=== PATIENT | female | born 1985 | race Caucasian/White ===

== ENCOUNTER 2017-05-18 13:20 | Emergency (ER) | payer OTHER ==
[2017-05-18] MEDS ORDERED: SODIUM CHLORIDE 0.9% 1,000 ML IV ONE ×3 (13:32→16:46)
[2017-05-18 13:57] LABS: BASOPHILS # (AUTO) 0.1 10^3/uL (0.0-0.1); BASOPHILS % (AUTO) 0.4 %; EOSINOPHILS % (AUTO) 0.2 %; HCT - HEMATOCRIT 41.6 % (37.0-47.0); HGB - HEMOGLOBIN 14.3 g/dL (12.0-16.0); LYMPHOCYTES # (AUTO) 2.3 10^3/uL (1.5-3.5); LYMPHOCYTES % (AUTO) 20.2 %; MEAN CORPUSCULAR HEMOGLOBIN 30.7 pg (27.0-31.0); MEAN CORPUSCULAR HGB CONC 34.4 g/dL (32.0-36.0); MEAN CORPUSCULAR VOLUME 89.3 fL (81.0-99.0); MEAN PLATELET VOLUME 9.6 fL (7.9-10.8); MONOCYTES # (AUTO) 0.7 10^3/uL (0.0-1.0); MONOCYTES % (AUTO) 6.4 %; NEUTROPHILS # (AUTO) 8.2 10^3/uL (1.5-6.6); NEUTROPHILS % (AUTO) 72.8 %; RED BLOOD COUNT 4.66 10^6/uL (4.20-5.40); RED CELL DISTRIBUTION WIDTH 12.3 % (12.0-15.0); UNCORRECTED WHITE BLOOD COUNT 11.3 x10^3/uL; WHITE BLOOD COUNT 11.3 x10^3/uL (4.8-10.8)
--- NOTE | 2017-05-18 14:10 | ED Physician Documentation ---
PD HPI NVD - Stated complaint Stated Complaint: ELEV BLOOD PRESSURE,RAPID HR - Chief complaint Chief Complaint: Abd Pain - History obtained from History obtained from: Patient - History of Present Illness Timing - onset: Today Timing - duration: Hours Timing - details: Gradual onset, Still present Associated symptoms: Other (blood in the stool) Contributing factors: Other (ate red peppers and dried tomatoes last night.) Similar symptoms before: No diagnosis Recently seen: Not recently seen - Additonal information Additional information: 31-year-old female is shy and avoids medical confrontation has had diarrhea for the past year several times per day with loose stool today she noted blood in the stool and she felt a bit lightheaded and dizzy. She has come to the emergency department with a rapid heart rate. She reports that she has not had blood in her stool before and that she does wonder if the red pepper and tried to make her sheet last night might be responsible for this. She noticed that she usually has a rapid heart rate. Review of Systems Constitutional: reports: Fatigue. denies: Fever, Chills Eyes: denies: Decreased vision Ears: denies: Ear pain Nose: denies: Congestion Throat: denies: Sore throat Cardiac: reports: Palpitations. denies: Chest pain / pressure Respiratory: denies: Dyspnea, Cough GI: reports: Abdominal Pain, Diarrhea. denies: Nausea, Vomiting : denies: Dysuria, Frequency Skin: denies: Rash, Lesions Musculoskeletal: denies: Neck pain, Back pain Neurologic: denies: Generalized weakness, Focal weakness, Numbness PD PAST MEDICAL HISTORY - Present Medications Home Medications: Ambulatory Orders Medication Instructions Recorded Confirmed Fluticasone [Flonase] 1 spray INH DAILY 05/18/17 05/18/17 - Allergies Allergies/Adverse Reactions: Allergies Allergy/AdvReac Type Severity Reaction Status Date / Time No Known Drug Allergies Allergy Verified 05/18/17 13:29 PD ED PE NORMAL - Vitals Vital signs reviewed: Yes (Tachycardic and hypertensive) - General General: Alert and oriented X 3, Well developed/nourished, Other (The patient is nervous appearing.) - HEENT HEENT: Atraumatic, PERRL, EOMI - Neck Neck: Supple, no meningeal sign - Cardiac Cardiac: No murmur, Other (Tachycardia to 150) - Respiratory Respiratory: No respiratory distress, Clear bilaterally - Abdomen Abdomen: Soft, Non tender - Back Back: No CVA TTP, No spinal TTP - Derm Derm: Normal color, Warm and dry, No rash - Extremities Extremities: No deformity, No edema - Neuro Neuro: Alert and oriented X 3, cut off operator scorer 2-12 intact, No motor deficit, No sensory deficit, Normal speech - Psych Psych: Normal mood, Normal affect Results - Vitals Vitals: Vital Signs - 24 hr 05/18/17 05/18/17 05/18/17 13:25 14:46 15:30 Temperature 37.3 C Heart Rate 157 H 130 H 113 H Respiratory 14 12 18 Rate Blood Pressure 180/103 H 158/108 H 171/94 H O2 Saturation 100 100 100 05/18/17 05/18/17 16:15 17:15 Temperature Heart Rate 133 H 95 Respiratory 14 14 Rate Blood Pressure 156/107 H 155/106 H O2 Saturation 100 99 Oxygen O2 Source Room air - EKG (time done) 1403 Rate: Rate (enter#) (128) Rhythm: Sinus tachycardia, LAE Ischemia: Non specific changes Compare to prior EKG: Old EKG unavailable Computer interpretation: Agree with computer - Labs Labs: Laboratory Tests 05/18/17 05/18/17 05/18/17 13:45 13:45 13:45 WBC 11.3 H RBC 4.66 Hgb 14.3 Hct 41.6 MCV 89.3 MCH 30.7 MCHC 34.4 RDW 12.3 Plt Count 283 MPV 9.6 Neut # 8.2 H Lymph # 2.3 [place] # 0.7 Eos # 0.0 Baso # 0.1 Absolute Nucleated RBC 0.00 Nucleated RBCs 0.0 Sodium 136 Potassium 3.2 L Chloride 101 Carbon Dioxide 23 Anion Gap 12.0 BUN 13 Creatinine 0.8 Estimated GFR (MDRD) 84 L Glucose 129 H Calcium 9.9 Total Bilirubin 1.1 H AST 21 ALT 20 Alkaline Phosphatase 48 Troponin I Total Protein 8.9 H Albumin 5.4 Globulin 3.5 Albumin/Globulin Ratio 1.5 Lipase 28 Urine Color Urine Clarity Urine pH Ur Specific [place] Urine Protein Urine Glucose (UA) Urine Ketones Urine Occult Blood Urine Nitrite Urine Bilirubin Urine Urobilinogen Ur Leukocyte Esterase Urine RBC Urine WBC Ur Squamous Epith Cells Urine Bacteria Ur Microscopic Review Urine Culture Comments Urine HCG, Qual Blood Type O POSITIVE Antibody Screen NEGATIVE 05/18/17 05/18/1717 14:49 14:59 15:45 WBC RBC Hgb Hct MCV MCH MCHC RDW Plt Count MPV Neut # Lymph # [place] # Eos # Baso # Absolute Nucleated RBC Nucleated RBCs Sodium Potassium Chloride Carbon Dioxide Anion Gap BUN Creatinine Estimated GFR (MDRD) Glucose Calcium Total Bilirubin AST ALT Alkaline Phosphatase Troponin I < 0.04 Total Protein Albumin Globulin Albumin/Globulin Ratio Lipase Urine Color YELLOW LT. YELLOW Urine Clarity HAZY CLEAR Urine pH 6.0 6.0 Ur Specific [place] 1.020 <=1.005 Urine Protein 30 H NEGATIVE Urine Glucose (UA) NEGATIVE NEGATIVE Urine Ketones 15 H NEGATIVE Urine Occult Blood SMALL H TRACE-INTA Urine Nitrite NEGATIVE NEGATIVE Urine Bilirubin NEGATIVE NEGATIVE Urine Urobilinogen 0.2 (NORMAL) 0.2 (NORMAL) Ur Leukocyte Esterase NEGATIVE NEGATIVE Urine RBC 6-10 H 0-5 Urine WBC >25 H 0-3 Ur Squamous Epith Cells MANY Squamous H RARE Squamous Urine Bacteria Few Rare Ur Microscopic Review INDICATED Cancelled Urine Culture Comments NOT INDICATED Cancelled Urine HCG, Qual NEGATIVE Blood Type Antibody Screen Procedures - IVC sono (time) 1400 Bedside IVC sono: IVC measures (cm) (0.66), IVC collapsed c insp (cm) (complete) , Profound dehydration 1730 Bedside IVC sono: IVC measures (cm) (1.46), IVC collapsed c insp (cm) (complete) , Dehydration (mild) PD MEDICAL DECISION MAKING - ED course Complexity details: considered differential, d/w patient ED course: 31-year-old female with a year-long history of diarrhea has developed what she felt was blood in her diarrhea this morning and on arrival to the emergency department she was found to be profoundly dehydrated. She is administered saline 2 L with marked improvement in her heart rate and return of her inferior vena cava from 0.66 to 1.46. She has not had diarrhea here in the ED and she has not had pain. She is nervous and she relates she is always nervous and has redness to her chest and face and heart racing with encounters. Her heart rate on arrival was 160 and after fluid administration is has come to under 100 but when anyone walks into the room the heart rate increase 20 points. I suspect her diarrhea is related to inflammatory bowel disease and I have encouraged her to seek follow up with a gas appliance installer for diagnosis and treatment. I have encouraged her to hydrate and to return to the ED for pain or bleeding. Her initial urine specimen had >25wbc/hpf but was a contaminated specimen and a second specimen was clear. She was administered Rocephin after the initial results. Departure - Departure Disposition: 01 Home, Self Care Clinical Impression: Dehydration, Anxiety Diarrhea Qualifiers: Diarrhea type: unspecified type Qualified Code(s): R19.7 - Diarrhea, unspecified Condition: Stable Instructions: ED Stress React, ED Dehydration, ED Diet Vomiting Diarrhea Follow-Up: Reyna Vasquez PA [Provider Admit Priv/Credential] - Comments: Follow up with a gas appliance installer for diagnosis and treatment.
[2017-05-18 14:12] LABS: ALBUMIN/GLOBULIN RATIO 1.5 (1.0-2.2); BILIRUBIN,TOTAL 1.1 mg/dL (0.2-1.0); CALCIUM 9.9 mg/dL (8.5-10.3); CREATININE 0.8 mg/dL (0.4-1.0); POTASSIUM 3.2 mmol/L (3.5-5.0); TOTAL PROTEIN 8.9 g/dL (6.7-8.2)
[2017-05-18 14:58] LABS: BILIRUBIN,URINE NEGATIVE (NEGATIVE)
[2017-05-18 14:59] LABS: UA w/ MICROSCOPIC CHARGE YES
[2017-05-18] MEDS ORDERED: POTASSIUM BICARB 25 MEQ TABLET PO STA (14:59)
[2017-05-18 15:04] LABS: HCG UR QUAL NEGATIVE
[2017-05-18 15:09] LABS: UR CULTURE IF IND NOT INDICATED; WBC,URINE >25 /HPF (0-5)
[2017-05-18] MEDS ORDERED: POTASSIUM BICARB 25 MEQ TABLET PO ONE (15:12)
[2017-05-18 16:07] LABS: BILIRUBIN,URINE NEGATIVE (NEGATIVE)
[2017-05-18] MEDS ORDERED: cefTRIAXone 1 GM in SODIUM CHLORIDE 0.9% MINIBAG 100 ML IV STA (16:20)
[2017-05-18] MEDS ORDERED: cefTRIAXone 1 GM VIAL ONE (16:45)
[2017-05-18 16:52] LABS: WBC,URINE 0-3 /HPF (0-5)
[2017-05-18 17:19] VITALS: BP 155/106
== END 2017-05-18 17:36 | disposition home or self-care (01) ==
LOC: ED 13:20
DX: E86.0 Dehydration (principal); F41.9 Anxiety disorder, unspecified; R19.7 Diarrhea, unspecified
CPT/HCPCS: 36415; 80053; 81001; 81025; 83690; 84484; 85025; 86850; 86900; 86901; 93005; 96361; 96365; 99284; A9270; 81003; 87086

== ENCOUNTER 2017-07-16 12:43 | Outpatient (CLI) | payer OTHER | END 2017-07-16 12:44 | disposition home or self-care (01) | LOC: DI 12:43 | PROVIDERS: ATTEND Registered Nurse | DX: R03.0 Elevated blood-pressure reading, without diagnosis of hypertension (principal) | CPT/HCPCS: 93306 ==

== ENCOUNTER 2020-11-11 14:25 | Outpatient (CLI) | payer BC ==
[2020-11-12 10:28] LABS: BILIRUBIN,URINE NEGATIVE (NEGATIVE); GLUCOSE, URINE (UA) NEGATIVE (NEGATIVE); KETONES,URINE (UA) NEGATIVE (NEGATIVE); LEUKOCYTE ESTERASE, URINE NEGATIVE (NEGATIVE); NITRITE,URINE NEGATIVE (NEGATIVE); OCCULT BLOOD,URINE NEGATIVE (NEGATIVE); PH,URINE 6.5 PH (5.0-7.5); PROTEIN,URINE NEGATIVE (NEGATIVE); UROBILINOGEN,URINE 0.2 (NORMAL) E.U./dL (NORMAL)
[2020-11-12 10:36] LABS: AMPHETAMINE SCREEN,URINE NEGATIVE (NEGATIVE); BENZODIAZEPINES SCREEN, URINE NEGATIVE (NEGATIVE); COCAINE SCREEN URINE NEGATIVE (NEGATIVE); METHADONE SCREEN, URINE NEGATIVE (NEGATIVE); METHAMPHETAMINES SCREEN, URINE NEGATIVE (NEGATIVE); MUDS CUTOFF CONCENTRATIONS CUTOFF CONC BELOW:; OPIATE SCREEN, URINE NEGATIVE (NEGATIVE); OXYCODONE SCREEN, URINE NEGATIVE (NEGATIVE); PROPOXYPHENE SCREEN, URINE NEGATIVE (NEGATIVE); TRICYCLIC ANTIDEPRESSANT,URINE NEGATIVE (NEGATIVE)
[2020-11-12 10:53] LABS: BACTERIA,URINE None Seen /HPF (None Seen); CLARITY,URINE CLEAR (CLEAR); RBC,URINE None Seen /HPF (0-5); SQUAMOUS EPITHELIAL CELL,UR FEW Squamous (<= Few)
== END 2020-11-11 23:59 | disposition home or self-care (01) ==
LOC: MERGE 14:25 → LAB.R 14:25
PROVIDERS: ATTEND Obstetrics & Gynecology
DX: Z34.90 Encounter for supervision of normal pregnancy, unspecified, unspecified trimester (principal)
CPT/HCPCS: 80306; 81001; 87086

== ENCOUNTER 2020-11-23 09:37 | Outpatient (CLI) | payer BC ==
--- NOTE | 2020-11-23 10:35 | Ultrasound Report ---
PROCEDURE: OB First Trimester w/TV INDICATIONS: SUPERVISION OF NORMAL OUTSIDE/PRIOR DATING DATA: Last menstrual period (LMP): 09/25/2020 LMP-based estimated date of delivery (PATRICE): 07/02/2021. First dating scan (date and location): 11/23/2020. Estimated date of delivery (PATRICE) from first dating scan: 07/14/2021. TECHNIQUE: Real-time scanning was performed of the fetus and maternal pelvic organs, with image documentation. Endovaginal scanning was also performed to better visualize the fetus and maternal ovaries. COMPARISON: None FINDINGS: Embryo: There is an intrauterine gestational sac seen, with a pole present, which measures 0.8 cm, which corresponds to an estimated gestational age of 6 weeks 5 days. cardiac activity is s een, with a measured heart rate of 137 bpm. No significant perigestational/subchorionic hemorrhage can be seen. Measurement variability in dating: +/- 4 weeks by LMP, +/- 7 days by mean sac diameter (use before 6 weeks gestation if crown-rump length not able to be measured), +/- 5 days by crown-rump length (6-12 weeks gestation). Maternal organs: Ovaries are within normal limits, with a left ovarian corpus luteum seen.. Limited images through the kidneys demonstrate no hydronephrosis. IMPRESSION: Single live intrauterine . There is a greater than one week discrepancy between the estimated gestational age based upon the giv en date of last menstrual period and the dating from the study. Please correlate with precise clinica l data. Close clinical follow-up with serial beta hCG measurements are recommended, as clinically appropriate . Reviewed by: Alex Del Angel MD on 11/23/2020 9:34 AM [facility] Approved by: Alex Del Angel MD on 11/23/2020 9:34 AM [facility] Station ID: [id number]
== END 2020-11-23 09:38 | disposition home or self-care (01) ==
LOC: DI 09:37
PROVIDERS: ATTEND Obstetrics & Gynecology
DX: O34.81 Maternal care for other abnormalities of pelvic organs, first trimester (principal); N83.12 Corpus luteum cyst of left ovary; Z3A.01 Less than 8 weeks gestation of pregnancy

== ENCOUNTER 2020-12-02 10:13 | Outpatient (CLI) | payer BC ==
[2020-12-02 11:00] LABS: BASOPHILS # (AUTO) 0.1 10^3/uL (0.0-0.1); BASOPHILS % (AUTO) 0.5 %; EOSINOPHILS # (AUTO) 0.4 10^3/uL (0.0-0.7); EOSINOPHILS % (AUTO) 3.6 %; HGB - HEMOGLOBIN 12.5 g/dL (12.0-16.0); LYMPHOCYTES # (AUTO) 2.5 10^3/uL (1.5-3.5); LYMPHOCYTES % (AUTO) 22.6 %; MEAN CORPUSCULAR HEMOGLOBIN 30.9 pg (27.0-31.0); MEAN CORPUSCULAR HGB CONC 34.2 g/dL (32.0-36.0); MEAN CORPUSCULAR VOLUME 90.3 fL (81.0-99.0); MEAN PLATELET VOLUME 11.6 fL (7.9-10.8); MONOCYTES # (AUTO) 0.7 10^3/uL (0.0-1.0); MONOCYTES % (AUTO) 6.6 %; NEUTROPHILS # (AUTO) 7.4 10^3/uL (1.5-6.6); NEUTROPHILS % (AUTO) 66.3 %; PLT - PLATELET COUNT 281 10^3/uL (130-450); RED BLOOD COUNT 4.04 10^6/uL (4.20-5.40); RED CELL DISTRIBUTION WIDTH 12.8 % (12.0-15.0); WHITE BLOOD COUNT 11.2 x10^3/uL (4.8-10.8)
[2020-12-02 11:14] LABS: ALBUMIN 4.2 g/dL (3.2-5.5); ALBUMIN/GLOBULIN RATIO 1.6 (1.0-2.2); BILIRUBIN,TOTAL 0.5 mg/dL (0.2-1.0); CALCIUM 9.3 mg/dL (8.5-10.3); CREATININE 0.5 mg/dL (0.4-1.0); TOTAL PROTEIN 6.9 g/dL (6.7-8.2)
[2020-12-02 13:26] LABS: HEMOGLOBIN A1c% 4.9 % (4.27-6.07)
[2020-12-03 12:38] LABS: HEPATITIS B SURFACE ANTIGEN NON-REACTIVE (NON-REACTIVE)
[2020-12-03 12:40] LABS: HEPATITIS C ANTIBODY NON-REACTIVE (NON-REACTIVE)
[2020-12-03 14:57] LABS: HIV AG/AB 4TH GEN NON-REACTIVE (NON-REACTIVE)
== END 2020-12-02 10:14 | disposition home or self-care (01) ==
LOC: LAB 10:13
PROVIDERS: ATTEND Obstetrics & Gynecology
DX: O16.9 Unspecified maternal hypertension, unspecified trimester (principal); Z36.89 Encounter for other specified antenatal screening; Z83.3 Family history of diabetes mellitus
CPT/HCPCS: 80053; 81220; 81243; 81329; 81599; 82306; 83036; 85025; 86592; 86762; 86787; 86803; 86850; 86900; 86901; 87340; 87389

== ENCOUNTER 2020-12-17 07:00 | Outpatient (CLI) | payer BC ==
[2020-12-17 17:01] LABS: CREATININE 24 HOUR,URINE 1011 mg/24h (600-1800); CREATININE,URINE 32.6 mg/dL; TOTAL VOLUME 24HRS,URINE 3100 mL
[2020-12-17 17:07] LABS: TOTAL PROTEIN,URINE TIMED < 6 mg/dL
== END 2020-12-17 23:59 | disposition home or self-care (01) ==
LOC: LAB.R 07:00
PROVIDERS: ATTEND Obstetrics & Gynecology
DX: O16.9 Unspecified maternal hypertension, unspecified trimester (principal)
CPT/HCPCS: 82570; 84156

== ENCOUNTER 2021-01-30 15:21 | Outpatient (CLI) | payer BC | END 2021-01-30 15:22 | disposition home or self-care (01) | LOC: LAB 15:21 | PROVIDERS: ATTEND Obstetrics & Gynecology | DX: Z34.90 Encounter for supervision of normal pregnancy, unspecified, unspecified trimester (principal); Z83.3 Family history of diabetes mellitus | CPT/HCPCS: 36415; 82950 ==

== ENCOUNTER 2021-02-25 15:11 | Outpatient (CLI) | payer BC ==
--- NOTE | 2021-02-26 10:51 | Ultrasound Report ---
PROCEDURE: OB Detailed Eval INDICATIONS: SCREENING OUTSIDE/PRIOR DATING DATA: Last menstrual period (LMP): 09/25/2020. LMP-based estimated date of delivery (PATRICE): 07/02/2021. First dating scan (date and location): 11/23/2020. Estimated date of delivery (PATRICE) from first dating scan: 07/14/2021. TECHNIQUE: Real-time scanning was performed of the fetus, with image documentation and biometric measurements. Endovaginal scanning: Not needed COMPARISON: 11/23/2020 FINDINGS: General: A single living intrauterine gestation is present. Presentation: Variable at this time Placenta: Placental position is anterior, without previa. Amniotic fluid index: 13.5 cm, 42nd percentile for gestational age. heart rate: 149 beats per minute. Maternal cervical canal: 4.2 cm long; normal length is 2.5 cm or more. biometrics: Biparietal diameter: 4.8 cm, 20 weeks 3 days Head circumference: 18.0 cm, 20 weeks 3 days Abdominal circumference: 14.7 cm, 20 weeks 0 days Femur length: 3.2 cm, 20 weeks 1 day Estimated gestational age from initial scan: 20 weeks 1 day. Composite gestational age from present scan: 20 weeks 1 day Estimated weight and percentile: 332 g, 42nd percentile Measurement variability in biometric dating: +/- 10 days from 12-20 weeks gestation, +/- 2 weeks from 20-30 weeks gestation, +/- 3 weeks at 30 weeks gestation or later. Anatomic survey: Neuro: Ventricles are normal at less than 10 mm. Cisterna magna is normal at 3-11 mm. Cerebellum i s normal in size and morphology. Nuchal skin fold: Normal at less than 6 mm between 14 and 20 weeks gestational age. Face: Nose and lips, facial profile are normal. Spine: No evidence for spina bifida. Heart: 4-chambered heart is present, with normal ventricular outflow tracts. Diaphragm: Diaphragm is intact. Stomach: Left-sided stomach is present. Kidneys: No hydronephrosis. Normal is less than 5 mm in 2nd trimester, less than 7 mm in 3rd trimester. Cord: 3 vessel cord has orthotopic insertion. Bladder: Normal in size. Extremities: All 4 extremities are visualized. IMPRESSION: Normal survey of anatomy, appropriate interval growth. presentation is variable at this t nikolas. Normal amniotic fluid volume with anterior placenta. Reviewed by: Keenan Partida MD on 02/26/2021 10:50 AM PDT Approved by: Keenan Partida MD on 02/26/2021 10:50 AM PDT Station ID: [id number]
== END 2021-02-25 15:12 | disposition home or self-care (01) ==
LOC: DI 15:11
PROVIDERS: ATTEND Obstetrics & Gynecology
DX: Z36.89 Encounter for other specified antenatal screening (principal)

== ENCOUNTER 2021-04-22 16:07 | Outpatient (CLI) | payer BC ==
[2021-04-22 17:22] LABS: HCT - HEMATOCRIT 32.5 % (37.0-47.0); HGB - HEMOGLOBIN 11.1 g/dL (12.0-16.0); MEAN CORPUSCULAR HEMOGLOBIN 31.4 pg (27.0-31.0); MEAN CORPUSCULAR HGB CONC 34.2 g/dL (32.0-36.0); MEAN CORPUSCULAR VOLUME 91.8 fL (81.0-99.0); MEAN PLATELET VOLUME 11.5 fL (7.9-10.8); RED BLOOD COUNT 3.54 10^6/uL (4.20-5.40); RED CELL DISTRIBUTION WIDTH 12.5 % (12.0-15.0); WHITE BLOOD COUNT 15.8 x10^3/uL (4.8-10.8)
== END 2021-04-22 16:08 | disposition home or self-care (01) ==
LOC: LAB 16:07
PROVIDERS: ATTEND Obstetrics & Gynecology
DX: O99.280 Endocrine, nutritional and metabolic diseases complicating pregnancy, unspecified trimester (principal); E55.9 Vitamin D deficiency, unspecified
CPT/HCPCS: 36415; 82306; 82950; 85027

== ENCOUNTER 2021-04-29 08:47 | Outpatient (CLI) | payer BC ==
[2021-04-29 09:15] LABS: GTT GLUCOSE,FASTING 93 mg/dL (70-100)
== END 2021-04-29 08:48 | disposition home or self-care (01) ==
LOC: LAB 08:47
PROVIDERS: ATTEND Obstetrics & Gynecology
DX: O99.810 Abnormal glucose complicating pregnancy (principal)
CPT/HCPCS: 36415; 82951; 82952

== ENCOUNTER 2021-05-19 14:00 | Outpatient (CLI) | payer BC | END 2021-05-19 14:01 | disposition home or self-care (01) | LOC: NS 14:00 | PROVIDERS: ATTEND Obstetrics & Gynecology | DX: Z71.3 Dietary counseling and surveillance (principal); O24.419 Gestational diabetes mellitus in pregnancy, unspecified control | CPT/HCPCS: 97802 ==

== ENCOUNTER 2021-05-28 15:56 | Outpatient (CLI) | payer BC ==
[2021-05-28 16:15] VITALS: BP 117/71
--- NOTE | 2021-05-28 19:58 | PROCEDURE REPORT ---
- HPI Diagnosis/Indication for NST: Pre- Hypertension Current EDU 07/14/21 Gestation 33 Weeks and 2 Days 1 Para 0 Vital Signs Temperature 98.1 F 05/28/21 16:14 Heart Rate 94 05/28/21 16:14 Respiratory Rate 16 05/28/21 16:14 Blood Pressure 117/71 05/28/21 16:14 O2 Saturation 98 05/28/21 16:14 Temperature 98.1 F 05/28/21 16:14 Heart Rate 94 05/28/21 16:14 Respiratory Rate 16 05/28/21 16:14 Blood Pressure 117/71 05/28/21 16:14 O2 Saturation 98 05/28/21 16:14 - NST Procedure NST Procedure Start Date 05/28/21 Start Time 16:13 Stop Time 16:45 Vibroacoustic Stimulation Used No Patient States Movement Yes NST Baseline 140 with moderate variability. Patient had two 15X15 accelerations, no decelerations. Category I monitor strip. Reactive NST. - Results and Plan Findings/Impression: IUP 33 2/7 with CHTN, Reactive NST. Plan: Continue twice weekly NSTs and continue medications. Keep all appointments. Call for any problems or concerns.
== END 2021-05-28 17:00 | disposition home or self-care (01) ==
LOC: WFO 15:56 → FBP 15:59 → WFO 17:00
PROVIDERS: ATTEND Obstetrics & Gynecology
DX: O10.913 Unspecified pre-existing hypertension complicating pregnancy, third trimester (principal); Z3A.33 33 weeks gestation of pregnancy
CPT/HCPCS: 59025

== ENCOUNTER 2021-05-30 15:52 | Outpatient (CLI) | payer BC ==
--- NOTE | 2021-05-31 07:24 | Ultrasound Report ---
PROCEDURE: OB F/U or Repeat INDICATIONS: GESTATIONAL DIABETES OUTSIDE/PRIOR DATING DATA: Last menstrual period (LMP): 09/25/2020. LMP-based estimated date of delivery (PATRICE): 07/02/2021 First dating scan (date and location): 11/23/2020. Estimated date of delivery (PATRICE) from first dating scan: 07/14/2021. The below data below was generated using the above PATRICE of 07/14/2021 TECHNIQUE: Real-time scanning was performed of the fetus, with image documentation and biometric measurements. Endovaginal scanning: Not needed COMPARISON: Prior OB ultrasound studies for this . FINDINGS: General: A single living intrauterine gestation is present. Presentation: Vertex Placenta: Placental position is anterior, without previa. Amniotic fluid index: 15.3 cm, normal for gestational age. heart rate: 150 beats per minute. Maternal cervical canal: 3.6 cm long; normal length is 2.5 cm or more. biometrics: Biparietal diameter: 8.8 cm, 35 weeks 3 days Head circumference: 32.5 cm, 36 weeks 5 days Abdominal circumference: 28.6 cm, 32 weeks 4 days Femur length: 6.2 cm, 32 weeks 1 day Estimated gestational age from initial scan: 33 weeks 4 days. Composite gestational age from present scan: 34 weeks 2 days Estimated weight and percentile: 2124 g, 29th percentile. Measurement variability in biometric dating: +/- 10 days from 12-20 weeks gestation, +/- 2 weeks from 20-30 weeks gestation, +/- 3 weeks at 30 weeks gestation or more. Other: Not applicable. IMPRESSION: Appropriate interval growth, current estimated weight is at the 29th percentile fo r current gestational age. Amniotic fluid volume is normal. The delivery date is projected to be cent ered on 07/14/2021. Reviewed by: Keenan Partida MD on 05/31/2021 7:23 AM PDT Approved by: Keenan Partida MD on 05/31/2021 7:23 AM PDT Station ID: [id number]
== END 2021-05-30 15:53 | disposition home or self-care (01) ==
LOC: DI 15:52
PROVIDERS: ATTEND Obstetrics & Gynecology
DX: O09.93 Supervision of high risk pregnancy, unspecified, third trimester (principal); O24.419 Gestational diabetes mellitus in pregnancy, unspecified control; O16.3 Unspecified maternal hypertension, third trimester; Z3A.33 33 weeks gestation of pregnancy

== ENCOUNTER 2021-05-30 17:16 | Outpatient (CLI) | payer BC ==
[2021-05-30 17:32] VITALS: BP 124/80
--- NOTE | 2021-05-31 09:43 | PROCEDURE REPORT ---
- HPI Current EDU 07/14/21 Gestation 33 Weeks and 4 Days 1 Para 0 Vital Signs Temperature 98.1 F 05/30/21 17:29 Heart Rate 93 05/30/21 17:29 Respiratory Rate 16 05/30/21 17:29 Blood Pressure 124/80 05/30/21 17:29 O2 Saturation 98 05/30/21 17:29 Temperature 98.1 F 05/30/21 17:29 Heart Rate 93 05/30/21 17:29 Respiratory Rate 16 05/30/21 17:29 Blood Pressure 124/80 05/30/21 17:29 O2 Saturation 98 05/30/21 17:29 Patient presented for NST due to her GHTN and GDM. Patient is 35yo at 33 4/7 weeks and is without complaints. NST: Baseline 140's with Moderate Variability. Accelerations 15X15 present. No decelerations. No Contractions. Reactive NST and Category I strip. A/P- IUP 33 4/7 with GDM and GHTN. Continue current plan and follow-up. Call for any problems. - NST Procedure NST Procedure Start Date 05/30/21 Start Time 17:30 Stop Time 18:00 Vibroacoustic Stimulation Used No Patient States Movement Yes
== END 2021-05-30 18:15 | disposition home or self-care (01) ==
LOC: WFO 17:16 → FBP 17:18 → WFO 18:15
PROVIDERS: ATTEND Obstetrics & Gynecology
DX: O24.419 Gestational diabetes mellitus in pregnancy, unspecified control (principal); O13.3 Gestational [pregnancy-induced] hypertension without significant proteinuria, third trimester; Z3A.33 33 weeks gestation of pregnancy; O09.93 Supervision of high risk pregnancy, unspecified, third trimester
CPT/HCPCS: 59025

== ENCOUNTER 2021-06-03 16:10 | Outpatient (CLI) | payer BC ==
[2021-06-03 17:12] VITALS: BP 119/70
--- NOTE | 2021-06-03 17:25 | PROCEDURE REPORT ---
- HPI Diagnosis/Indication for NST: Pre- Hypertension (Patient has CHTN and GDM) Current EDU 07/14/21 Gestation 34 Weeks and 1 Days 1 Para 0 Vital Signs Temperature 97.9 F 06/03/21 16:15 Heart Rate 73 06/03/21 16:15 Respiratory Rate 16 06/03/21 16:15 Blood Pressure 133/73 H 06/03/21 16:15 O2 Saturation 99 06/03/21 16:15 Temperature 97.9 F 06/03/21 16:15 Heart Rate 70 06/03/21 17:02 Respiratory Rate 16 06/03/21 17:02 Blood Pressure 119/70 06/03/21 17:02 O2 Saturation 99 06/03/21 16:15 - NST Procedure NST Procedure Start Date 06/03/21 Start Time 16:13 Stop Time 17:03 Vibroacoustic Stimulation Used Yes Patient States Movement Yes 35yo at 38 weeks presents for NST due to CHTN and GDM. Patient reports good movement. Patient is on Labetalol 100mg BID. Patient states her glucose level always stays within the range it is supposed to be in. NST: Baseline 130 with moderate variability. Patient required Acoustic stimulation and ice water to obtain 15X15 accelerations. No decelerations. Reactive NST and Category I monitor strip. P-Keep all appointments for clinic and monitoring. Call for any problems.
== END 2021-06-03 17:05 | disposition home or self-care (01) ==
LOC: WFO 16:10 → FBP 16:10 → WFO 17:05
PROVIDERS: ATTEND Obstetrics & Gynecology
DX: O10.913 Unspecified pre-existing hypertension complicating pregnancy, third trimester (principal); O24.419 Gestational diabetes mellitus in pregnancy, unspecified control; Z3A.34 34 weeks gestation of pregnancy; Z79.899 Other long term (current) drug therapy
CPT/HCPCS: 59025

== ENCOUNTER 2021-06-06 16:53 | Outpatient (CLI) | payer BC ==
[2021-06-06 17:14] VITALS: BP 124/75
--- NOTE | 2021-06-07 13:02 | PROCEDURE REPORT ---
- HPI Diagnosis/Indication for NST: Gestational Diabetes Current EDU 07/14/21 Gestation 34 Weeks and 4 Days 1 Para 0 Vital Signs Temperature 97.7 F 06/06/21 17:12 Heart Rate 88 06/06/21 17:12 Respiratory Rate 16 06/06/21 17:12 Blood Pressure 124/75 06/06/21 17:12 O2 Saturation 99 06/06/21 17:12 Temperature 97.7 F 06/06/21 17:12 Heart Rate 88 06/06/21 17:12 Respiratory Rate 16 06/06/21 17:12 Blood Pressure 124/75 06/06/21 17:12 O2 Saturation 99 06/06/21 17:12 35yo at 34 4/7 weeks here for NST due to GDM NST: Baseline heart tones 135 with moderate variability. Accelerations of 15X15 are present. No decelerations. Reactive NST and Category I monitor strip. - NST Procedure NST Procedure Start Date 06/06/21 Start Time 17:03 Stop Time 17:29 Vibroacoustic Stimulation Used No Patient States Movement Yes - Results and Plan Plan: A-IUP 34 4/7 with GDM P- Continue with all monitoring and clinic appointments.
--- NOTE | 2021-06-10 16:31 | Ultrasound Report ---
PROCEDURE: OB Limited INDICATIONS: SUPERVISION OF HIGH RISK OUTSIDE/PRIOR DATING DATA: Last menstrual period (LMP): 09/25/2020. LMP-based estimated date of delivery (PATRICE): 07/02/2021. First dating scan (date and location): 11/23/2020. Estimated date of delivery (PATRICE) from first dating scan: 07/14/2021. TECHNIQUE: Real-time scanning was performed of the fetus, with image documentation. Endovaginal scanning: No COMPARISON: Prior OB ultrasound dated 05/30/2021 FINDINGS: A single living intrauterine gestation is present. Presentation: Vertex Placenta: Placental position is anterior, without previa. Amniotic fluid index: 14.5 cm, normal for gestational age. heart rate: 141 beats per minutes. Maternal cervical canal: 4.0 cm long; normal length is 2.5 cm or more. Estimated gestational age from initial scan: 34 weeks 4 days. IMPRESSION: Single living IUP redemonstrated and amniotic fluid index is within normal limits. Reviewed by: RANDAL Del Toro on 06/10/2021 4:30 PM PDT Approved by: Keenan Partida MD on 06/10/2021 4:30 PM PDT Station ID: [id number]
== END 2021-06-06 17:30 | disposition home or self-care (01) ==
LOC: DI 16:53 → FBP 16:58 → WFO 17:30
PROVIDERS: ATTEND Obstetrics & Gynecology
DX: O24.419 Gestational diabetes mellitus in pregnancy, unspecified control (principal); O09.93 Supervision of high risk pregnancy, unspecified, third trimester; O16.3 Unspecified maternal hypertension, third trimester; Z3A.34 34 weeks gestation of pregnancy
CPT/HCPCS: 59025

== ENCOUNTER 2021-06-10 15:56 | Outpatient (CLI) | payer BC ==
[2021-06-10 16:16] VITALS: BP 126/71
--- NOTE | 2021-06-13 10:40 | PROCEDURE REPORT ---
- HPI Diagnosis/Indication for NST: Pre- Hypertension Current EDU 07/14/21 Gestation 35 Weeks and 1 Days 1 Para 0 Vital Signs Temperature 98.2 F 06/10/21 16:10 Heart Rate 80 06/10/21 16:10 Respiratory Rate 14 06/10/21 16:10 Blood Pressure 126/71 06/10/21 16:10 O2 Saturation 98 06/10/21 16:10 Temperature 98.2 F 06/10/21 16:10 Heart Rate 80 06/10/21 16:10 Respiratory Rate 14 06/10/21 16:10 Blood Pressure 126/71 06/10/21 16:10 O2 Saturation 98 06/10/21 16:10 - NST Procedure NST Procedure Start Date 06/10/21 Start Time 16:03 Stop Time 17:01 Vibroacoustic Stimulation Used No Patient States Movement Yes EFM 140 mod jose luis 15x15 accels no decels TOCO: quiet - Results and Plan Findings/Impression: 35 yo at 35+1 wga with affected by GDM and CHTN here for NST Cat I tracing Cont with twice weekly NSt and weekly JOANNE DOS: 06/10/21 NST read 06/10/21 DX: IUP at 35+1 GDM CHTN
== END 2021-06-10 17:03 | disposition home or self-care (01) ==
LOC: WFO 15:56 → FBP 15:59 → WFO 17:03
PROVIDERS: ATTEND Obstetrics & Gynecology
DX: O24.419 Gestational diabetes mellitus in pregnancy, unspecified control (principal); O10.913 Unspecified pre-existing hypertension complicating pregnancy, third trimester; Z3A.35 35 weeks gestation of pregnancy
CPT/HCPCS: 59025

== ENCOUNTER 2021-06-13 15:57 | Outpatient (CLI) | payer BC ==
--- NOTE | 2021-06-14 09:10 | Ultrasound Report ---
PROCEDURE: OB Limited INDICATIONS: SUPERVISION HIGH RISK OUTSIDE/PRIOR DATING DATA: Last menstrual period (LMP): 09/25/2020. LMP-based estimated date of delivery (PATRICE): 07/02/2021. First dating scan (date and location): 11/23/2020. Estimated date of delivery (PATRICE) from first dating scan: 07/14/2021. The below data below was generated using the ultrasound PATRICE of 07/14/2021 TECHNIQUE: Real-time scanning was performed of the fetus, with image documentation. COMPARISON: 06/06/2021, 05/30/2021, 02/25/2021, 11/23/2020 FINDINGS: A single live intrauterine gestation is present. Presentation: Cephalic Placenta: Placental position is anterior, without previa. Amniotic fluid index: 21.8 cm, above the 95th percentile for gestational age. heart rate: 133 beats per minutes. Maternal cervical canal: 3.5 cm long; normal length is 2.5 cm or more. Estimated gestational age from initial scan: 35 weeks 4 days. IMPRESSION: Live intrauterine . Mild polyhydramnios, with the JOANNE measuring 21.8. Reviewed by: Alex Del Angel MD on 06/14/2021 8:09 AM [facility] Approved by: Alex Del Angel MD on 06/14/2021 8:09 AM [facility] Station ID: [id number]
== END 2021-06-13 15:58 | disposition home or self-care (01) ==
LOC: DI 15:57
PROVIDERS: ATTEND Obstetrics & Gynecology
DX: O09.93 Supervision of high risk pregnancy, unspecified, third trimester (principal); O40.3XX0 Polyhydramnios, third trimester, not applicable or unspecified; Z3A.35 35 weeks gestation of pregnancy

== ENCOUNTER 2021-06-13 17:24 | Outpatient (CLI) | payer BC ==
[2021-06-13 17:36] VITALS: BP 127/69
--- NOTE | 2021-06-13 18:50 | PROCEDURE REPORT ---
- HPI Diagnosis/Indication for NST: Pre- Hypertension Current EDU 07/14/21 Gestation 35 Weeks and 4 Days 1 Para 0 Vital Signs Temperature 97.9 F 06/13/21 17:32 Heart Rate 81 06/13/21 17:32 Respiratory Rate 16 06/13/21 17:32 Blood Pressure 127/69 06/13/21 17:32 O2 Saturation 99 06/13/21 17:32 Temperature 97.9 F 06/13/21 17:32 Heart Rate 81 06/13/21 17:32 Respiratory Rate 16 06/13/21 17:32 Blood Pressure 127/69 06/13/21 17:32 O2 Saturation 99 06/13/21 17:32 - NST Procedure NST Procedure Start Date 06/13/21 Start Time 17:30 Stop Time 18:00 Vibroacoustic Stimulation Used No Patient States Movement Yes EFM 135 mod jose luis 15x15 accels no decels TOCO: 1 on 20 min - Results and Plan Findings/Impression: 35 yo at 35+4 wga with affected by GDM and CHTN here for NST Cat I tracing Cont with twice weekly NST and weekly JOANNE DOS: 06/13/21 NST read 06/13/21 DX: IUP at 35+4 GDM CHTN
== END 2021-06-13 18:00 | disposition home or self-care (01) ==
LOC: WFO 17:24 → FBP 17:25 → WFO 18:00
PROVIDERS: ATTEND Obstetrics & Gynecology
DX: O09.93 Supervision of high risk pregnancy, unspecified, third trimester (principal); O10.913 Unspecified pre-existing hypertension complicating pregnancy, third trimester; Z3A.35 35 weeks gestation of pregnancy
CPT/HCPCS: 59025

== ENCOUNTER 2021-06-17 15:53 | Outpatient (CLI) | payer BC ==
[2021-06-17 16:06] VITALS: BP 136/86
--- NOTE | 2021-06-19 11:03 | PROCEDURE REPORT ---
- HPI Diagnosis/Indication for NST: Other (GDM and HTN) Current EDU 07/16/21 Gestation 35 Weeks and 6 Days 1 Para 0 Vital Signs Temperature 98.2 F 06/17/21 16:05 Heart Rate 100 06/17/21 16:05 Respiratory Rate 20 06/17/21 16:05 Blood Pressure 136/86 H 06/17/21 16:05 O2 Saturation 97 06/17/21 16:05 Temperature 98.2 F 06/17/21 16:05 Heart Rate 100 06/17/21 16:05 Respiratory Rate 20 06/17/21 16:05 Blood Pressure 136/86 H 06/17/21 16:05 O2 Saturation 97 06/17/21 16:05 - NST Procedure NST Procedure Start Date 06/17/21 Start Time 16:00 Stop Time 16:25 Vibroacoustic Stimulation Used No Patient States Movement Yes EFM 140 mod jose luis 15x15 accels no decels TOCO: 2 contractions in 20 minutes - Results and Plan Findings/Impression: 35 yo at 35+6 wga with affected by GDM and CHTN here for NST Cat I tracing Cont with twice weekly NST and weekly JOANNE DOS: 06/17/21 NST read 06/17/21 DX: IUP at 35+6 GDM CHTN
== END 2021-06-17 16:28 | disposition home or self-care (01) ==
LOC: WFO 15:53 → FBP 15:54 → WFO 16:28
PROVIDERS: ATTEND Obstetrics & Gynecology
DX: O24.419 Gestational diabetes mellitus in pregnancy, unspecified control (principal); O10.913 Unspecified pre-existing hypertension complicating pregnancy, third trimester; Z3A.35 35 weeks gestation of pregnancy
CPT/HCPCS: 59025

== ENCOUNTER 2021-06-18 07:00 | Outpatient (CLI) | payer BC | END 2021-06-18 23:59 | disposition home or self-care (01) | LOC: LAB.R 07:00 | PROVIDERS: ATTEND Obstetrics & Gynecology | DX: O09.90 Supervision of high risk pregnancy, unspecified, unspecified trimester (principal) | CPT/HCPCS: 87797 ==

== ENCOUNTER 2021-06-20 15:56 | Outpatient (CLI) | payer BC ==
--- NOTE | 2021-06-20 18:37 | Ultrasound Report ---
PROCEDURE: OB Limited INDICATIONS: SUPERVISION HIGH RISK OUTSIDE/PRIOR DATING DATA: Last menstrual period (LMP): 09/25/2020. LMP-based estimated date of delivery (PATRICE): 07/02/2021. First dating scan (date and location): 11/23/2020. Estimated date of delivery (PATRICE) from first dating scan: 07/14/2021. TECHNIQUE: Real-time scanning was performed of the fetus, with image documentation. Endovaginal scanning: None COMPARISON: 06/13/2021 FINDINGS: A single living intrauterine gestation is present. Presentation: Cephalic Placenta: Placental position is anterior, without previa. Amniotic fluid index: 22.9 cm heart rate: 143 beats per minutes. Maternal cervical canal: 4.1 cm long; normal length is 2.5 cm or more. Estimated gestational age from initial scan: 36 week 4 day. IMPRESSION: Single live intrauterine consistent with 36 week 4 day gestation JOANNE 22.9 cm, mild polyhydramnios Reviewed by: Ralph Wylie MD on 06/20/2021 5:35 PM [facility] Approved by: Ralph Wylei MD on 06/20/2021 5:35 PM [facility] Station ID: [id number]
== END 2021-06-20 15:57 | disposition home or self-care (01) ==
LOC: DI 15:56
PROVIDERS: ATTEND Obstetrics & Gynecology
DX: O09.93 Supervision of high risk pregnancy, unspecified, third trimester (principal); Z3A.36 36 weeks gestation of pregnancy

== ENCOUNTER 2021-06-20 16:50 | Outpatient (CLI) | payer BC ==
[2021-06-20 17:05] VITALS: BP 128/77
--- NOTE | 2021-06-21 11:11 | PROCEDURE REPORT ---
- HPI Diagnosis/Indication for NST: Gestational Diabetes Current EDU 07/14/21 Gestation 36 Weeks and 4 Days 1 Para 0 Vital Signs Temperature 36.8 C 06/20/21 17:03 Heart Rate 82 06/20/21 17:03 Respiratory Rate 16 06/20/21 17:03 Blood Pressure 128/77 06/20/21 17:03 O2 Saturation 100 06/20/21 17:03 Temperature 36.8 C 06/20/21 17:03 Heart Rate 82 06/20/21 17:03 Respiratory Rate 16 06/20/21 17:03 Blood Pressure 128/77 06/20/21 17:03 O2 Saturation 100 06/20/21 17:03 - NST Procedure NST Procedure Start Date 06/20/21 Start Time 16:55 Stop Time 17:23 Vibroacoustic Stimulation Used No Patient States Movement Yes - Results and Plan Findings/Impression: Nonstress test performed Baseline 135 qualifying accelerations of 15 x 15 were noted no decelerations were noted. No contractions visualized. Reactive NST Date of service 06/20/2021 Plan: Twice weekly NSTs. Date of service 06/20/2021
== END 2021-06-20 17:30 | disposition home or self-care (01) ==
LOC: WFO 16:50 → FBP 16:51 → WFO 17:30
PROVIDERS: ATTEND Obstetrics & Gynecology
DX: O09.93 Supervision of high risk pregnancy, unspecified, third trimester (principal); O24.419 Gestational diabetes mellitus in pregnancy, unspecified control; Z3A.36 36 weeks gestation of pregnancy
CPT/HCPCS: 59025

== ENCOUNTER 2021-06-24 15:54 | Outpatient (CLI) | payer BC ==
[2021-06-24 16:54] VITALS: BP 137/77
--- NOTE | 2021-06-28 04:32 | PROCEDURE REPORT ---
- HPI Diagnosis/Indication for NST: Gestational Diabetes Current EDU 07/14/21 Gestation 37 Weeks and 1 Days 1 Para 0 Vital Signs Temperature 98.2 F 06/24/21 16:00 Heart Rate 72 06/24/21 16:00 Respiratory Rate 18 06/24/21 16:00 Blood Pressure 138/84 H 06/24/21 16:00 O2 Saturation 99 06/24/21 16:00 Temperature 98.2 F 06/24/21 16:27 Heart Rate 79 06/24/21 16:27 Respiratory Rate 18 06/24/21 16:27 Blood Pressure 137/77 H 06/24/21 16:27 O2 Saturation 99 06/24/21 16:27 - NST Procedure NST Procedure Start Date 06/24/21 Start Time 16:00 Stop Time 16:30 Vibroacoustic Stimulation Used No Patient States Movement Yes EFM: 135 mod jose luis 15x15 accels no decels TOCO: mild Q 2-3 min - Results and Plan Findings/Impression: 35 yo at 37+1 wga with affected by GDM and CHTN here for NST Cat I tracing Cont with twice weekly NST and weekly JOANNE Not feeling CTX. Warning signs reviewed Borderline DOS: 06/24/21 NST read 06/24/21 DX: IUP at 37+1 GDM CHTN
== END 2021-06-24 16:45 | disposition home or self-care (01) ==
LOC: WFO 15:54 → FBP 15:54 → WFO 16:45
PROVIDERS: ATTEND Obstetrics & Gynecology
DX: O24.419 Gestational diabetes mellitus in pregnancy, unspecified control (principal); Z3A.37 37 weeks gestation of pregnancy; O10.913 Unspecified pre-existing hypertension complicating pregnancy, third trimester
CPT/HCPCS: 59025; 99212

== ENCOUNTER 2021-06-27 16:02 | Outpatient (CLI) | payer BC ==
--- NOTE | 2021-06-27 17:14 | Ultrasound Report ---
PROCEDURE: OB Limited INDICATIONS: SUPERVISION HIGH RISK OUTSIDE/PRIOR DATING DATA: Last menstrual period (LMP): 09/25/2020. LMP-based estimated date of delivery (PATRICE): 07/02/2021. First dating scan (date and location): 11/23/2020. Estimated date of delivery (PATRICE) from first dating scan: 07/14/2021. TECHNIQUE: Real-time scanning was performed of the fetus, with image documentation. Endovaginal scanning: No COMPARISON: Prior OB ultrasound dated 06/20/2021 FINDINGS: A single living intrauterine gestation is present. Presentation: Vertex Placenta: Placental position is anterior, without previa. Amniotic fluid index: 17.9 cm, within normal limits for gestational age. heart rate: 143 beats per minutes. Maternal cervical canal: Not well seen. Estimated gestational age from initial scan: 37 weeks 4 days. IMPRESSION: Single living IUP redemonstrated and amniotic fluid index is within normal limits. Reviewed by: RANDAL Del Toro on 06/27/2021 5:13 PM PDT Approved by: Keenan Partida MD on 06/27/2021 5:13 PM PDT Station ID: [id number]
== END 2021-06-27 16:03 | disposition home or self-care (01) ==
LOC: DI 16:02
PROVIDERS: ATTEND Obstetrics & Gynecology
DX: O09.93 Supervision of high risk pregnancy, unspecified, third trimester (principal); Z3A.37 37 weeks gestation of pregnancy

== ENCOUNTER 2021-06-27 16:32 | Outpatient (CLI) | payer BC ==
--- NOTE | 2021-06-28 05:06 | PROCEDURE REPORT ---
- NST Procedure NST Procedure Start Time 16:00 Stop Time 16:30 EFM: 135 mod jose luis 15x15 accels no decels TOCO: irritable - Results and Plan Findings/Impression: 35 yo at 37+4 wga with affected by GDM and CHTN here for NST Cat I tracing Cont with twice weekly NST and weekly JOANNE Borderline JOANNE DOS: 06/27/21 NST read 06/27/21 DX: IUP at 37+4 GDM CHTN
== END 2021-06-27 16:33 | disposition home or self-care (01) ==
LOC: WFO 16:32
PROVIDERS: ATTEND Obstetrics & Gynecology
DX: Z53.9 Procedure and treatment not carried out, unspecified reason (principal)

== ENCOUNTER 2021-06-27 16:37 | Outpatient (CLI) | payer BC ==
[2021-06-27 16:51] VITALS: BP 126/83
--- NOTE | 2021-07-02 18:05 | PROCEDURE REPORT ---
- HPI Diagnosis/Indication for NST: Other (CHTN) Current EDU 07/14/21 Gestation 37 Weeks and 4 Days 1 Para 0 Vital Signs Temperature 97.5 F L 06/27/21 16:50 Heart Rate 96 06/27/21 16:50 Respiratory Rate 16 06/27/21 16:50 Blood Pressure 126/83 H 06/27/21 16:50 O2 Saturation 100 06/27/21 16:50 Temperature 97.5 F L 06/27/21 16:50 Heart Rate 96 06/27/21 16:50 Respiratory Rate 16 06/27/21 16:50 Blood Pressure 126/83 H 06/27/21 16:50 O2 Saturation 100 06/27/21 16:50 - NST Procedure NST Procedure Start Date 06/27/21 Start Time 16:50 Stop Time 17:16 Vibroacoustic Stimulation Used No Patient States Movement Yes EFM 140 mod jose luis 15x15 accels no decels TOCO: irreg, Q4-5, mild - Results and Plan Findings/Impression: 35 yo at 37+4 wga with affected by CHTN and GDM here for NST Cat I tracing DOS: 06/27/21 NST read: 06/27/21 DX: GDM CHTN IUP at 37+4 wga
== END 2021-06-27 17:20 | disposition home or self-care (01) ==
LOC: WFO 16:37 → FBP 16:40 → WFO 17:20
PROVIDERS: ATTEND Obstetrics & Gynecology
DX: O10.913 Unspecified pre-existing hypertension complicating pregnancy, third trimester (principal); O24.419 Gestational diabetes mellitus in pregnancy, unspecified control; O09.93 Supervision of high risk pregnancy, unspecified, third trimester; Z3A.37 37 weeks gestation of pregnancy
CPT/HCPCS: 59025

== ENCOUNTER 2021-07-01 15:53 | Outpatient (CLI) | payer BC ==
[2021-07-01 16:03] VITALS: BP 130/77
--- NOTE | 2021-07-01 20:05 | PROCEDURE REPORT ---
- HPI Diagnosis/Indication for NST: Other (CHTN AND GDM) Current EDU 07/14/21 Gestation 38 Weeks and 1 Days 1 Para 0 Vital Signs Temperature 97.7 F 07/01/21 16:02 Heart Rate 70 07/01/21 16:02 Respiratory Rate 16 07/01/21 16:02 Blood Pressure 130/77 07/01/21 16:02 O2 Saturation 100 07/01/21 16:02 Temperature 97.7 F 07/01/21 16:02 Heart Rate 70 07/01/21 16:02 Respiratory Rate 16 07/01/21 16:02 Blood Pressure 130/77 07/01/21 16:02 O2 Saturation 100 07/01/21 16:02 - NST Procedure NST Procedure Start Date 07/01/21 Start Time 16:00 Stop Time 16:23 Vibroacoustic Stimulation Used No Patient States Movement Yes EFM: 140 mod jose luis 15x15 accels no decels TOCO: irritable - Results and Plan Findings/Impression: 35 yo at 38+1 wga with affected by GDM and CHTN here for NST Cat I tracing Cont with twice weekly NST and weekly JOANNE Borderline JOANNE DOS: 07/01/21 NST read 07/01/21 DX: IUP at 38+1 GDM CHTN
== END 2021-07-01 16:30 | disposition home or self-care (01) ==
LOC: WFO 15:53 → FBP 15:56 → WFO 16:30
PROVIDERS: ATTEND Obstetrics & Gynecology
DX: O24.419 Gestational diabetes mellitus in pregnancy, unspecified control (principal); O10.913 Unspecified pre-existing hypertension complicating pregnancy, third trimester; Z3A.38 38 weeks gestation of pregnancy
CPT/HCPCS: 59025

== ENCOUNTER 2021-07-04 15:56 | Outpatient (CLI) | payer BC ==
[2021-07-04 17:01] VITALS: BP 138/81
--- NOTE | 2021-07-04 20:10 | PROCEDURE REPORT ---
- HPI Diagnosis/Indication for NST: Other (Chroinic Hypertension) Current EDU 07/14/21 Gestation 38 Weeks and 4 Days 1 Para 0 Vital Signs Temperature 98.2 F 07/04/21 17:00 Heart Rate 84 07/04/21 17:00 Respiratory Rate 16 07/04/21 17:00 Blood Pressure 138/81 H 07/04/21 17:00 O2 Saturation 99 07/04/21 17:00 Temperature 98.2 F 07/04/21 17:00 Heart Rate 84 07/04/21 17:00 Respiratory Rate 16 07/04/21 17:00 Blood Pressure 138/81 H 07/04/21 17:00 O2 Saturation 99 07/04/21 17:00 - NST Procedure NST Procedure Start Date 07/04/21 Start Time 16:48 Stop Time 17:16 Vibroacoustic Stimulation Used No Patient States Movement Yes 35 yo at 38 4/7 with Chronic Hypertension and Gestational Diabetes is here for NST. Patient reports good movement. Patient denies contractions, SROM or vaginal bleeding. Patient is without complaints. NST: heart rate baseline is 135 with moderate variability. Accelerations are present, 15X15 bpm. No decelrations. Reactive NST and Category I monitor strip. A-IUP 38 4/7 with Chronic Hypertension and GDM. Keep all appointments for monitoring and for clinic. Labor precautions.
== END 2021-07-04 17:20 | disposition home or self-care (01) ==
LOC: WFO 15:56 → FBP 16:42 → WFO 17:20
PROVIDERS: ATTEND Obstetrics & Gynecology
DX: O24.419 Gestational diabetes mellitus in pregnancy, unspecified control (principal); Z3A.38 38 weeks gestation of pregnancy; O10.913 Unspecified pre-existing hypertension complicating pregnancy, third trimester; O09.93 Supervision of high risk pregnancy, unspecified, third trimester
CPT/HCPCS: 59025

== ENCOUNTER 2021-07-04 15:58 | Outpatient (CLI) | payer BC ==
--- NOTE | 2021-07-04 17:17 | Ultrasound Report ---
PROCEDURE: OB F/U or Repeat INDICATIONS: GESTATIONAL DIABETES, SUPER HIGH RISK OUTSIDE/PRIOR DATING DATA: Last menstrual period (LMP): 09/25/2020. LMP-based estimated date of delivery (PATRICE): 07/02/2021. First dating scan (date and location): 11/23/2020. Estimated date of delivery (PATRICE) from first dating scan: 07/14/2021. TECHNIQUE: Real-time scanning was performed of the fetus, with image documentation and biometric measurements. Endovaginal scanning: No COMPARISON: Prior OB ultrasound dated 06/27/2021 FINDINGS: General: A single living intrauterine gestation is present. Presentation: Vertex Placenta: Placental position is anterior, without previa. Amniotic fluid index: 23 cm, upper limits of normal for gestational age. heart rate: 133 beats per minute. Maternal cervical canal: Not well seen. biometrics: Biparietal diameter: 39 weeks 5 days Head circumference: 38 weeks 4 days Abdominal circumference: 37 weeks 1 day Femur length: 36 weeks Estimated gestational age from initial scan: 38 weeks 4 days Composite gestational age from present scan: 37 weeks 6 days Estimated weight and percentile: 318 4 g; 35th percentile Measurement variability in biometric dating: +/- 10 days from 12-20 weeks gestation, +/- 2 weeks from 20-30 weeks gestation, +/- 3 weeks at 30 weeks gestation or more. Other: S/D ratios within normal limits ranging between 2.5 and 2.7 IMPRESSION: Single living IUP redemonstrated and interval growth is within normal limits. Reviewed by: RANDAL Del Toro on 07/04/2021 5:16 PM PDT Approved by: Cristhian Macdonald MD on 07/04/2021 5:16 PM PDT Station ID: [id number]
== END 2021-07-04 15:59 | disposition home or self-care (01) ==
LOC: DI 15:58
PROVIDERS: ATTEND Obstetrics & Gynecology
DX: O09.93 Supervision of high risk pregnancy, unspecified, third trimester (principal); Z3A.38 38 weeks gestation of pregnancy

== ENCOUNTER 2021-07-07 16:49 | Outpatient (CLI) | payer BC ==
--- NOTE | 2021-07-07 18:04 | PROCEDURE REPORT ---
- HPI Diagnosis/Indication for NST: Gestational Diabetes (Patient has GDM A2 on Metformin and Chroinic Hypertension.) - NST Procedure NST Procedure Start Time 16:48 Stop Time 16:23 35 yo at 39 0/7 with Chronic Hypertension and GDM A2 presented for NST. Patient reports good movement. Patient denies contractions, SROM or vaginal bleeding. NST: 130 with moderate variability and Accelerations. 15X15 Accelerations. No decelerations. A-IUP 39 0/7 with Chronic Hypertension and GDM-A2 P- Patient to be called in for induction as soon as staffing allows or tomorrow morning. Labor Precautions.
[2021-07-07 18:15] VITALS: BP 133/81
== END 2021-07-07 17:55 | disposition home or self-care (01) ==
LOC: WFO 16:49 → FBP 16:53 → WFO 17:55
PROVIDERS: ATTEND Obstetrics & Gynecology
DX: O24.415 Gestational diabetes mellitus in pregnancy, controlled by oral hypoglycemic drugs (principal); Z3A.39 39 weeks gestation of pregnancy; O10.913 Unspecified pre-existing hypertension complicating pregnancy, third trimester
CPT/HCPCS: 59025

== ENCOUNTER 2021-07-08 07:43 | Inpatient (IN) | payer BC ==
[2021-07-08] MEDS ORDERED: METOCLOPRAMIDE 10 MG TABLET PO PRN (08:48)
[2021-07-08] MEDS ORDERED: TRANEXAMIC ACID IN NACL 1,000 MG/100 ML BAG IV PRN (08:48)
[2021-07-08] MEDS ORDERED: LIDOCAINE-MPF 1% 30 ML VIAL ID PRN (08:48)
[2021-07-08] MEDS ORDERED: SODIUM CHLORIDE FLUSH 0.9% 10 ML SYRINGE IVP PRN (08:48)
[2021-07-08] MEDS ORDERED: ONDANSETRON ODT 4 MG TABLET TL PRN (08:48)
[2021-07-08] MEDS ORDERED: fentaNYL 100 MCG/2 ML VIAL IVP PRN (08:48)
[2021-07-08] MEDS ORDERED: ACETAMINOPHEN 325 MG TABLET PO PRN (08:48)
[2021-07-08] MEDS ORDERED: OXYTOCIN/SODIUM CHLORIDE 500 ML IV PRN (08:48)
[2021-07-08] MEDS ORDERED: ONDANSETRON 4 MG/2 ML VIAL IVP PRN (08:48)
[2021-07-08] MEDS ORDERED: OXYTOCIN 10 UNIT/ML VIAL IM PRN (08:48)
[2021-07-08] MEDS ORDERED: METHYLERGONOVINE 0.2 MG/ML VIAL IM PRN (08:48)
[2021-07-08] MEDS ORDERED: METOCLOPRAMIDE 10 MG/2 ML VIAL IVP PRN (08:48)
[2021-07-08] MEDS ORDERED: PROMETHAZINE 25 MG TABLET PO PRN (08:48)
[2021-07-08] MEDS ORDERED: CARBOPROST TROMETHAMINE 250 MCG/ML AMP IM PRN (08:48)
[2021-07-08] MEDS ORDERED: miSOPROStoL 200 MCG TABLET BC PRN (08:48)
[2021-07-08] MEDS ORDERED: SODIUM CHLORIDE FLUSH 0.9% 10 ML SYRINGE IVP SCH (09:00)
[2021-07-08] MEDS ORDERED: miSOPROStoL 100 MCG TABLET VG SCH (09:00)
[2021-07-08 09:02] LABS: BASOPHILS % (AUTO) 0.3 %; EOSINOPHILS # (AUTO) 0.2 10^3/uL (0.0-0.7); EOSINOPHILS % (AUTO) 1.3 %; HCT - HEMATOCRIT 34.8 % (37.0-47.0); HGB - HEMOGLOBIN 11.6 g/dL (12.0-16.0); MEAN CORPUSCULAR HEMOGLOBIN 30.9 pg (27.0-31.0); MEAN CORPUSCULAR HGB CONC 33.3 g/dL (32.0-36.0); MEAN CORPUSCULAR VOLUME 92.8 fL (81.0-99.0); MEAN PLATELET VOLUME 12.8 fL (7.9-10.8); MONOCYTES # (AUTO) 0.8 10^3/uL (0.0-1.0); MONOCYTES % (AUTO) 6.7 %; NEUTROPHILS # (AUTO) 8.7 10^3/uL (1.5-6.6); NEUTROPHILS % (AUTO) 73.7 %; PLT - PLATELET COUNT 197 10^3/uL (130-450); RED BLOOD COUNT 3.75 10^6/uL (4.20-5.40); WHITE BLOOD COUNT 11.8 x10^3/uL (4.8-10.8)
[2021-07-08] MEDS: miSOPROStoL 100 MCG TABLET BC SCH ×4 (09:15→21:07)
--- NOTE | 2021-07-08 12:11 | HISTORY & PHYSICAL EXAMINATION ---
Admit History - Visit Reason Visit Reason: Other (Patient presents for induction of labor due to Chronic Hypertension and GDM-A2.) - : 1 Parity: 0 Premature: 0 Ectopic: 0 : 0 Care: positive: Other ([facility]. Dr. Mckoy.), None Risk/History: positive: Other (Chronic Hypertension diagnosed in 2013.) Complications This : positive: Gestational diabetes (Gestational Diabetes A2 utilizing Metformin 100mg po q hs.), Other (Chronic Hypertension on Labetalol 100mg po BID.) Smoking Status: Never smoker - Mother's Labs Mother's Blood Type: positive: O Mother's RH: positive: Positive GBS: positive: Group B Step Negative Rubella Status: positive: Immune Meds/Allgy - Home Medications Home Medications: Ambulatory Orders Medication Instructions Recorded Confirmed Fluticasone [Flonase] 1 spray INH DAILY 05/18/17 05/18/17 Labetalol [Trandate] 100 mg PO BID 05/19/21 05/19/21 Pnv No.95/Ferrous Fum/Folic AC 1 each PO DAILY 05/19/21 05/19/21 [ Caplet] - Allergies Allergies/Adverse Reactions: Allergies Allergy/AdvReac Type Severity Reaction Status Date / Time No Known Drug Allergies Allergy Verified 12/16/20 15:47 Review of Systems - Constitutional Constitutional: denies: Fatigue, Weakness - Cardiovascular Cariovascular: denies: Irregular heart rate, Palpitations, Chest pain - Respiratory Respiratory: denies: Cough, Sputum production, Wheezing - Gastrointestinal Gastrointestinal: denies: Abdominal pain - Genitourinary Genitourinary: denies: Dysuria, Frequency - Musculoskeletal Musculoskeletal: denies: Muscle pain - Integumentary Integumentary: denies: Rash - Neurological Neurological: denies: General weakness, Focal weakness - Psychiatric Psychiatric: denies: Depression, Anxiety Physical - Abdominal Exam Vital Signs: Temp Pulse Resp BP Pulse Ox 97.9 F 122 H 18 121/76 07/08/21 08:55 07/08/21 08:55 07/08/21 08:55 07/08/21 08:55 Contraction Frequency (min/apart): None at present. Uterine Resting Tone: positive: Soft - Monitoring Heart Rate Baseline: 130's Strip Review: positive: Category I - Presentation Presentation: positive: Vertex - Vaginal Exam Membranes: positive: Membranes intact Dilation (in cm): Finger tip Effacement (%): 50 Station: positive: -3, Ballotable Cervical Position: positive: Midposition - Speculum Exam Speculum Exam Performed: positive: No - Other Notes Labor Progress Note/Additional Text: General: Patient is lying in bed and appears comfortable. Chest: Clear to auscultation. Good breath sounds in all hung. No wheezes or rhonchi. Heart: RRR without murmur or gallop. Abdomen: Soft, gravid, Non-tender RN Exam on admission: Cervix FT/50/-2, ballotable, mid-position. Extremities: No edema, no calf tenderness Neuro: DTR's +2/+4 Spoke to patient about Induction process. Discussed ultimate goal is healthy mom and healthy . Patient desires to labor without epidural and took on line Hypnosis classes to have tools to handle her pain. Discussed she needs to be monitored continuously and that our monitors are wireless and she can get in tub with them. Patient received the COVID Vaccine during , last dose when 28 weeks gestation. A-IUP 39 0/7 Induction of labor due to Chronic Hypertension and Gestational Diabetes A2. Will follow 2 hour post meal blood sugars and do a fasting in the morning, if she is still . Continue Labetalol BID. P- Admit. Begin with Cytotec cervical ripening. Continuous monitoring.
[2021-07-08] MEDS: LACTATED RINGERS 1,000 ML IV SCH (12:14)
--- NOTE | 2021-07-08 13:22 | PROVIDER PROGRESS NOTE ---
Labor Progress Note - Uterine Monitoring Contraction Frequency (min/apart): Very irregular, 3-7 Patient is not feeling mu ch. Contraction Intensity: positive: Mild - Monitoring Monitor Mode: positive: External ultrasound Heart Rate Baseline: 130 Heart Rate Variability: positive: Moderate (6-25 bmp) Accelerations: positive: Present, 15x15 Decelerations: positive: None Strip Review: positive: Category I - Vaginal Exam Dilation (in cm): 1.5 Effacement (%): 50 Station: -3 (Off to patient's left side and mid position. Soft.) - Labor Progress Note Labor Progress Note/Additional Text: Patient is not feeling too many contractions. Patient reports good movement. A-IUP 39 0/7 Induction due to Chronic Hypertension and GDM-A2 P- Give next Cytotec dose. Continuous monitoring.
[2021-07-08] MEDS ORDERED: ZOLPIDEM 5 MG TABLET PO PRN (21:00)
[2021-07-08] MEDS: LABETALOL 100 MG TABLET PO SCH (21:06)
[2021-07-09] MEDS: LACTATED RINGERS 1,000 ML IV SCH ×2 (02:10→05:34)
--- NOTE | 2021-07-09 02:24 | PROVIDER PROGRESS NOTE ---
Labor Progress Note - Uterine Monitoring Contraction Intensity: positive: Moderate, Moderate to strong - Monitoring Monitor Mode: positive: External ultrasound Heart Rate Baseline: 130 Heart Rate Variability: positive: Moderate (6-25 bmp) Accelerations: positive: Present, 15x15 Strip Review: positive: Category I (With pushing, patient is having variable decelrations.) - Vaginal Exam Dilation (in cm): Complete Effacement (%): 100 Station: 0 - Labor Progress Note Labor Progress Note/Additional Text: Patient was complete with bulging forebag. AROM performed with clear fluid. Patient immediately started pushing and had some decelerations with pushing. Side tilt and moving off of center when not pushing. Moderate variability is present. Head moved to 1+ station. A-IUP 39 1/7 with Chronic Hypertension and GDM A2 P- Expectant Management. Anticipate .
[2021-07-09] MEDS ORDERED: fentaNYL 100 MCG/2 ML VIAL ONE (03:03)
[2021-07-09] MEDS ORDERED: SODIUM CHLORIDE 0.9% 500 ML IV ONE ×2 (04:03→07:16)
[2021-07-09 04:04] LABS: BASOPHILS % (AUTO) 0.5 %; EOSINOPHILS % (AUTO) 0.2 %; HGB - HEMOGLOBIN 9.7 g/dL (12.0-16.0); LYMPHOCYTES % (AUTO) 5.6 %; MEAN CORPUSCULAR HEMOGLOBIN 31.3 pg (27.0-31.0); MEAN CORPUSCULAR HGB CONC 33.4 g/dL (32.0-36.0); MEAN CORPUSCULAR VOLUME 93.5 fL (81.0-99.0); MEAN PLATELET VOLUME 12.1 fL (7.9-10.8); MONOCYTES % (AUTO) 2.5 %; NEUTROPHILS % (AUTO) 87.1 %; PLT - PLATELET COUNT 196 10^3/uL (130-450); RED CELL DISTRIBUTION WIDTH 13.1 % (12.0-15.0)
[2021-07-09 04:07] LABS: ABNORMAL LYMPHS % (MANUAL) 0 %
[2021-07-09 04:34] LABS: INR 1.1 (0.8-1.2)
--- NOTE | 2021-07-09 05:00 | DELIVERY NOTE ---
Delivery Note - Labor Labor: positive: Other (Induced with Cytotec) - Delivery Method Delivery Method: positive: Spontaneous vaginal delivery - Cervical Ripening Method Cervical Ripening Method: positive: Misoprostil - Presentation Presentation: positive: Vertex, OA - occiput anterior - Nuchal Cord Nuchal Cord: positive: Present (Loose times one, delivered over head.) - Anesthetic Anesthetic Type: Anesthetic: positive: Lidocaine - 1% plain Volume: positive: Other (20 cc.) - Amniotic Fluid Description Amniotic Fluid Description: positive: Clear - Episiotomy Type Episiotomy Type: positive: None - Laceration Laceration: positive: 2nd degree, Perineal (There were vaginal lacerations bilaterally down both vaginal sulcus/sidewalls. There was a very deep, left periurethral that extended through and through the labial skin. There was a right periurethral and right vaginal sidewall laceration. There was a second degree perineal laceration stretched), Periurethral, Vaginal - Irvine Irvine: positive: Placed in direct skin contact with mother Irvine sex: positive: Male - Cord Cord: positive: 3 vessels - Placenta Placenta: positive: Intact, Spontaneous - Estimated Blood Loss Estimated Blood Loss (in cc): 2,920 - Post Delivery Events Post Delivery Events: positive: Other (Patient had significant blood loss coming from several vaginal lacerations. It was bleeding rapidly after delivery. Bleeding started prior to delivery of head. Vaginal sulcus lacerations were bilateral and deep. Left periurethral laceration was bleeding profusely.) - Delivery Comments (Free Text/Narrative) Delivery Comments (Free Text/Narrative): 35 yo at 39 1/7 started induction/cervical ripening on 07/08/21 for Chronic Hypertension and GDM-A2. Patient had 3 doses of cytotec. Patient got up to tub and within 30 minutes was feeling a lot of pressure. Patient was found to be complete. AROM performed and clear fluid present. Patient started pushing at 2:16 and had delivery at 2:52. Delivery: Patient pushed head to 3+ station. Significant blood flow started appearing 3-4 pushes before delivery of head. Controlled delivery of head in direct OA position occurred. There was a loose nuchal cord times one that was easily delivered over the infant head. The remainder of delivered spontaneously, anterior shoulder first, then controlled deilviery of body. was placed on mother's abdomen. Delayed cord clamping was performed. Living male with Apgars of 8/9. The placenta delivered spontaneously, intact, CHARITY. Cervix was inspected and found to be bruised, but intact. Significant blood flow was coming from the vagina. Pitocin was started in IV after 's cord clamped. Patient was placed in stirrups and bed broken down. 1%Lidocaine was injected into several lacerations. The Left Periurethral area had a very deep laceration that extended through and through the labial skin. 2-0 Vicryl was was utilized in a running fashion in the deep layer. 2-0 Vicryl in a running fashion was utilized to then sew the skin. 3-0 Vicryl was utilized on the under side of the labial skin, then on the outside of the labial skin. Attention was directed to right vaginal sulcus laceration that was bleeding. 2-0 Vicryl in a running fashion to place sutures for approximation to vaginal mucosa. The right labial skin was approximated with 2-0 Vicryl. Right periuurethral laceration repaired with 2-0 Vicryl The left vaginal sulcus/sidewall laceration was repaired with 2-0 vicryl. Several deep sutures were placed at the introitus to approximate the vaginal side wall to the vaginal mucosa in the midline. The right vaginal sidewall appear to be having active bleeding and a deep defect was palpated. 2-0 Vicryl in interrupted fashion times three was utilized to repair the defect. Hemostasis was obtained. The Left periurethral area appeared to be oozing and 3 interrupted sutures of 2-0 Vicryl were placed to obtain hemostasis. Attention was then directed at introitus. The hymen was from the vaginal mucosa. 2-0 Vicryl was utilized to approximate the hymen to the vaignal mucosa. Next, one deep figure of 8 of 0- Vicryl was placed in the levator ani to remove it from stretch. It was intact, but stretched. 2-0 Vicryl in in 2- layer, running fashion was utilized to repair the perineal laceration. Good hemostasis and approximation were obtained. During procedure, due to significant blood loss, TXA was giving, 2 units of PRBC's were ordered. Patient's blood pressure got low and fluid boluses were given. Patient's legs were elevated over her head. Second IV was placed. Several more sutures were placed at introitus to obtain hemostasis approximation. All areas of lacerations were re-inspected and found to be hemostatic. The fundus was checked and found to be below the umbilicus. EBL is 2920cc. First unit of PRBC's is hanging. Plan to give 2 units of PBC's and one unit of FFP due to significant. Hemostasis was obtained. Patient and infant are resting in stable condition.
[2021-07-09 05:03] LABS: BAND NEUTROPHILS % (MANUAL) 35 %; DIFFERENTIAL COMMENT MANUAL DIFFERENTIAL; LYMPHOCYTES # (MANUAL) 1.4 10^3/uL (1.5-3.5); LYMPHOCYTES % (MANUAL) 6 %; METAMYELOCYTES % (MANUAL) 2 %; MONOCYTES # (MANUAL) 0.2 10^3/uL (0.0-1.0); MYELOCYTES % (MANUAL) 2 %; NEUTROPHILS # (MANUAL) 21.4 10^3/uL (1.5-6.6); PLATELET ESTIMATE, MANUAL NORMAL (130-450,000) (NORMAL); RBC MORPHOLOGY (MULTIPLE) NORMAL APPEARANCE (NORMAL)
[2021-07-09] MEDS: ACETAMINOPHEN 500 MG TABLET PO PRN ×2 (05:16→14:27)
[2021-07-09] MEDS ORDERED: LACTATED RINGERS 1,000 ML IV SCH (06:00)
[2021-07-09 06:18] LABS: HCT - HEMATOCRIT 28.9 % (37.0-47.0); HGB - HEMOGLOBIN 9.7 g/dL (12.0-16.0)
[2021-07-09] MEDS: IBUPROFEN 600 MG TABLET PO SCH ×3 (09:06→20:43)
[2021-07-09] MEDS: LABETALOL 100 MG TABLET PO SCH (13:09)
[2021-07-09 13:30] LABS: BASOPHILS # (AUTO) 0.1 10^3/uL (0.0-0.1); BASOPHILS % (AUTO) 0.4 %; EOSINOPHILS % (AUTO) 0.2 %; HCT - HEMATOCRIT 25.8 % (37.0-47.0); HGB - HEMOGLOBIN 8.7 g/dL (12.0-16.0); LYMPHOCYTES # (AUTO) 1.3 10^3/uL (1.5-3.5); LYMPHOCYTES % (AUTO) 7.1 %; MEAN CORPUSCULAR HEMOGLOBIN 30.4 pg (27.0-31.0); MEAN CORPUSCULAR HGB CONC 33.7 g/dL (32.0-36.0); MEAN CORPUSCULAR VOLUME 90.2 fL (81.0-99.0); MEAN PLATELET VOLUME 12.2 fL (7.9-10.8); MONOCYTES # (AUTO) 0.7 10^3/uL (0.0-1.0); MONOCYTES % (AUTO) 3.7 %; NEUTROPHILS # (AUTO) 15.9 10^3/uL (1.5-6.6); NEUTROPHILS % (AUTO) 87.6 %; PLT - PLATELET COUNT 134 10^3/uL (130-450); RED BLOOD COUNT 2.86 10^6/uL (4.20-5.40); RED CELL DISTRIBUTION WIDTH 14.7 % (12.0-15.0); WHITE BLOOD COUNT 18.1 x10^3/uL (4.8-10.8)
[2021-07-09 18:06] LABS: BASOPHILS # (AUTO) 0.1 10^3/uL (0.0-0.1); BASOPHILS % (AUTO) 0.4 %; EOSINOPHILS # (AUTO) 0.2 10^3/uL (0.0-0.7); HCT - HEMATOCRIT 24.2 % (37.0-47.0); HGB - HEMOGLOBIN 8.4 g/dL (12.0-16.0); LYMPHOCYTES # (AUTO) 1.5 10^3/uL (1.5-3.5); LYMPHOCYTES % (AUTO) 9.8 %; MEAN CORPUSCULAR HEMOGLOBIN 31.3 pg (27.0-31.0); MEAN CORPUSCULAR HGB CONC 34.7 g/dL (32.0-36.0); MEAN CORPUSCULAR VOLUME 90.3 fL (81.0-99.0); MEAN PLATELET VOLUME 12.1 fL (7.9-10.8); MONOCYTES # (AUTO) 0.9 10^3/uL (0.0-1.0); MONOCYTES % (AUTO) 5.6 %; NEUTROPHILS # (AUTO) 12.5 10^3/uL (1.5-6.6); NEUTROPHILS % (AUTO) 81.8 %; PLT - PLATELET COUNT 128 10^3/uL (130-450); RED BLOOD COUNT 2.68 10^6/uL (4.20-5.40); RED CELL DISTRIBUTION WIDTH 15.3 % (12.0-15.0); WHITE BLOOD COUNT 15.3 x10^3/uL (4.8-10.8)
[2021-07-09] MEDS: DOCUSATE SODIUM 100 MG CAPSULE PO SCH (20:43)
[2021-07-10] MEDS: ACETAMINOPHEN 500 MG TABLET PO PRN ×3 (00:02→16:19)
[2021-07-10] MEDS: IBUPROFEN 600 MG TABLET PO SCH ×3 (06:23→18:51)
[2021-07-10 07:00] LABS: BASOPHILS # (AUTO) 0.1 10^3/uL (0.0-0.1); BASOPHILS % (AUTO) 0.5 %; EOSINOPHILS # (AUTO) 0.2 10^3/uL (0.0-0.7); EOSINOPHILS % (AUTO) 1.6 %; HCT - HEMATOCRIT 25.3 % (37.0-47.0); HGB - HEMOGLOBIN 8.5 g/dL (12.0-16.0); LYMPHOCYTES # (AUTO) 1.5 10^3/uL (1.5-3.5); LYMPHOCYTES % (AUTO) 10.8 %; MEAN CORPUSCULAR HEMOGLOBIN 30.5 pg (27.0-31.0); MEAN CORPUSCULAR HGB CONC 33.6 g/dL (32.0-36.0); MEAN CORPUSCULAR VOLUME 90.7 fL (81.0-99.0); MEAN PLATELET VOLUME 12.4 fL (7.9-10.8); MONOCYTES # (AUTO) 1.1 10^3/uL (0.0-1.0); MONOCYTES % (AUTO) 7.8 %; NEUTROPHILS # (AUTO) 10.9 10^3/uL (1.5-6.6); PLT - PLATELET COUNT 127 10^3/uL (130-450); RED BLOOD COUNT 2.79 10^6/uL (4.20-5.40); RED CELL DISTRIBUTION WIDTH 15.3 % (12.0-15.0)
[2021-07-10] MEDS: DOCUSATE SODIUM 100 MG CAPSULE PO SCH ×2 (08:59→20:43)
--- NOTE | 2021-07-10 11:14 | PROVIDER PROGRESS NOTE ---
Subjective - Prog Note Date Prog Note Date: 07/10/21 Prog Note Time: 11:15 - Subjective Pt reports feeling: Improved (Patient is reseting in bed, holding her sleeping infant. Patient is ambulating, urinating, and tolerating a regular diet. Patient states pain is well controlled. Patient is breast feeding.) Objective - Vital Signs/Intake & Output Reviewed Vital Signs: Yes Vital Signs: Vital Signs x48h Temp Pulse Resp BP Pulse Ox 07/10/21 08:00 98.1 F 100 14 118/62 100 Intake & Output: Intake & Output 07/07/21 07/08/21 07/09/21 07/10/21 23:59 23:59 23:59 23:59 Intake Total 1485 2668.333 Output Total 2455 1750 Balance 1485 213.333 -1750 - Objective General Appearance: positive: No acute distress Eyes Bilateral: positive: Normal inspection Respiratory: positive: No respiratory distress, Breath sounds nml. negative: Wheezes, Rales Cardiovascular: positive: Regular rate & rhythm, No murmur, No gallop Abdomen: positive: Non-tender, Nml bowel sounds, Other (Fundus is firm and below the umbilicus.) Skin: positive: Color nml Extremities: positive: No pedal edema. negative: Calf tenderness Neurologic/Psychiatric: positive: Oriented x3, Mood/affect nml Reflexes: Knee (R): 2+ - Lab Results Fish Bones: 07/10/21 06:45 Other Labs: Lab Results x24hrs 07/10/21 07/09/21 07/09/21 Range/Units 06:45 18:00 13:20 WBC 14.0 H 15.3 H 18.1 H (4.8-10.8) x10^3/uL RBC 2.79 L 2.68 L 2.86 L (4.20-5.40) 10^6/uL Hgb 8.5 L 8.4 L 8.7 L (12.0-16.0) g/dL Hct 25.3 L 24.2 L 25.8 L (37.0-47.0) % MCV 90.7 90.3 90.2 (81.0-99.0) fL MCH 30.5 31.3 H 30.4 (27.0-31.0) pg MCHC 33.6 34.7 33.7 (32.0-36.0) g/dL RDW 15.3 H 15.3 H 14.7 (12.0-15.0) % Plt Count 127 L 128 L 134 (130-450) 10^3/uL MPV 12.4 H 12.1 H 12.2 H (7.9-10.8) fL Neut # (Auto) 10.9 H 12.5 H 15.9 H (1.5-6.6) 10^3/uL Lymph # (Auto) 1.5 1.5 1.3 L (1.5-3.5) 10^3/uL Kershaw # (Auto) 1.1 H 0.9 0.7 (0.0-1.0) 10^3/uL Eos # (Auto) 0.2 0.2 0.0 (0.0-0.7) 10^3/uL Baso # (Auto) 0.1 0.1 0.1 (0.0-0.1) 10^3/uL Absolute Nucleated RBC 0.00 0.00 0.00 x10^3/uL Nucleated RBC % 0.0 0.0 0.0 /100WBC Blood Type Antibody Screen Crossmatch IS Only 07/08/21 Range/Units 08:05 WBC (4.8-10.8) x10^3/uL RBC (4.20-5.40) 10^6/uL Hgb (12.0-16.0) g/dL Hct (37.0-47.0) % MCV (81.0-99.0) fL MCH (27.0-31.0) pg MCHC (32.0-36.0) g/dL RDW (12.0-15.0) % Plt Count (130-450) 10^3/uL MPV (7.9-10.8) fL Neut # (Auto) (1.5-6.6) 10^3/uL Lymph # (Auto) (1.5-3.5) 10^3/uL Kershaw # (Auto) (0.0-1.0) 10^3/uL Eos # (Auto) (0.0-0.7) 10^3/uL Baso # (Auto) (0.0-0.1) 10^3/uL Absolute Nucleated RBC x10^3/uL Nucleated RBC % /100WBC Blood Type O POSITIVE Antibody Screen NEGATIVE Crossmatch IS Only See Detail Assessment/Plan - Problem List (1) Anemia due to acute blood loss Impression: S/ day 1 with hemorraghe from multiple vaginal lacerations. S/P Transfusion of 2 units of PRBC's and 1 unit of FFP. P- Continue routine care. Patient and desire to stay until tomorrow. Re-start Labetalol this evening for her Chronic Hypertension. Discharge to home tomorrow.
[2021-07-10] MEDS: LABETALOL 100 MG TABLET PO SCH (20:44)
[2021-07-11] MEDS: ACETAMINOPHEN 500 MG TABLET PO PRN ×2 (00:14→09:00)
[2021-07-11] MEDS: IBUPROFEN 600 MG TABLET PO SCH ×2 (02:28→08:59)
[2021-07-11 07:35] VITALS: BP 129/71
[2021-07-11] MEDS: LABETALOL 100 MG TABLET PO SCH (08:59)
[2021-07-11] MEDS: DOCUSATE SODIUM 100 MG CAPSULE PO SCH (08:59)
--- NOTE | 2021-07-11 11:27 | PROVIDER PROGRESS NOTE ---
Subjective - Prog Note Date Prog Note Date: 07/11/21 Prog Note Time: 11:25 - Subjective Pt reports feeling: Improved (Patient is resting comfortably in bed. Patient is tolerating a regular diet. Patient is ambulating, urinating and breast feeding without difficulty.) Objective - Vital Signs/Intake & Output Reviewed Vital Signs: Yes Vital Signs: Vital Signs x48h Temp Pulse Resp BP Pulse Ox 07/11/21 07:32 208.6 F H 91 18 129/71 97 07/11/21 04:45 98.0 F 98 16 133/78 H 98 Intake & Output: Intake & Output 07/08/21 07/09/21 07/10/21 07/11/21 23:59 23:59 23:59 23:59 Intake Total 1485 2668.333 740 Output Total 2455 1750 Balance 1485 213.333 -1750 740 - Objective General Appearance: positive: No acute distress Eyes Bilateral: positive: Normal inspection Respiratory: positive: Breath sounds nml. negative: Wheezes, Rales Cardiovascular: positive: Regular rate & rhythm, No murmur, No gallop Abdomen: positive: Non-tender, Nml bowel sounds, Other (Fundus is firm and below the umbilicus. Non-tender to palpation.) Skin: positive: Color nml Extremities: positive: Non-tender, No pedal edema Neurologic/Psychiatric: positive: Oriented x3, Mood/affect nml (DTR's +1/+4) Reflexes: Knee (R): 1+ - Lab Results Fish Bones: 07/10/21 06:45 Assessment/Plan - Problem List (1) Anemia due to acute blood loss Impression: day #2 from with multiple vaginal lacerations that were repaired. Chronic Hypertension Gestational Diabetes - A2 P- Discharge to home. Pelvic rest. Regular diet. Motrin, Tylenol, Labetalol and vitamins. Follow-up in clinic in one week and 6 weeks. Call for fever, chills, nausea, vomiting, excessive bleeding, headaches,blurred vision or any other problems.
--- NOTE | 2021-07-11 11:34 | Discharge Plan ---
Discharge Plan Problem Reviewed?: Yes Disposition: Home, Self Care Condition: Good Diet: Regular Activity Restrictions: Pelvic Rest Shower Restrictions: No No Smoking: If you smoke, Please STOP! Call for help. Follow-up with: Jewell Medrano ARNP [Primary Care Provider] -
--- NOTE | 2021-07-11 11:36 | DISCHARGE SUMMARY ---
Discharge Summary Admit Date: 07/08/21 Discharge Date: 07/11/21 Discharging Provider: lAba Braswell DO Condition at Discharge: Good Discharge Disposition: 01 Home, Self Care - DIAGNOSES Admission Diagnoses: IUP 39 1/7 with Chronic Hypertension and GEM-A2 Discharge Diagnoses with Status of Each Condition: Discharge Diagnosis Chronic Hypertension - stable on Labetalol 100mg BID. Anemia of Acute Blood loss - stable. - HPI History of Present Illness: 35 yo at 39 1/7 was admitted for Medically indicated Induction of labor due to Chronic Hypertension and GDM-A2 Patient underwent cytotec for cervical ripening. Patient entered active labor on cytotec. Hospital Course. Patient progressed and had 37 minute second stage of labor. over intact perineum. Living male 7# 1oz with Apgars of 8/9/ Patient had extensive vaginal lacerations and had hemorrhage from all the vaginal lacerations. EBL was 2920 cc. Patient had Transfusion of 2 units of PRBC's and 1 unit of FFP. TXA was administered during repair process. The repair of lacerations took 2 hours. Patient had uneventful recovery after transfusion of above blood products. Patient is ambulating, urinating and tolerating a regular diet. - ALLERGIES Allergies/Adverse Reactions: Allergies Allergy/AdvReac Type Severity Reaction Status Date / Time No Known Drug Allergies Allergy Verified 12/16/20 15:47 - MEDICATIONS Home Medications: Ambulatory Orders Medication Instructions Recorded Confirmed Fluticasone [Flonase] 1 spray INH DAILY 05/18/17 05/18/17 Labetalol [Trandate] 100 mg PO BID 05/19/21 05/19/21 Pnv No.95/Ferrous Fum/Folic AC 1 each PO DAILY 05/19/21 05/19/21 [ Caplet] - PHYSICAL EXAM AT DISCHARGE General Appearance: positive: No acute distress Eyes Bilateral: positive: Normal inspection Respiratory: positive: Breath sounds nml. negative: Wheezes, Rales Cardiovascular: positive: Regular rate & rhythm, No murmur, No gallop Abdomen: positive: Non-tender, Nml bowel sounds, Other (Fundus is firm and non- tender and below the umbilicus.) Skin: positive: Color nml Extremities: positive: Nml appearance, No pedal edema Neurologic/Psychiatric: positive: Oriented x3, Mood/affect nml Reflexes: Bicep (L): 1+ - LABS Result Diagrams: 07/10/21 06:45 - QUALITY (Female Hip Fx Only) Was patient sent home on osteoporosis medication?: No - TIME SPENT Time Spent in Discharge (Minutes): 45
== END 2021-07-11 12:35 | disposition home or self-care (01) | DRG 806 ==
LOC: WFO 07:43 → FBP 07:44 → WFO 08:47 → FBP 08:48
PROVIDERS: ADMIT Obstetrics & Gynecology; ATTEND Obstetrics & Gynecology
PROC: 3E0DXGC Introduction of Other Therapeutic Substance into Mouth and Pharynx, External Approach (ICD-10-PCS; 2021-07-08)
PROC: 10907ZC Drainage of Amniotic Fluid, Therapeutic from Products of Conception, Via Natural or Artificial Opening (ICD-10-PCS; principal; 2021-07-09)
PROC: 10E0XZZ Delivery of Products of Conception, External Approach (ICD-10-PCS; 2021-07-09)
PROC: 0KQM0ZZ Repair Perineum Muscle, Open Approach (ICD-10-PCS; 2021-07-09)
PROC: 0UQMXZZ Repair Vulva, External Approach (ICD-10-PCS; 2021-07-09)
PROC: 30233K1 Transfusion of Nonautologous Frozen Plasma into Peripheral Vein, Percutaneous Approach (ICD-10-PCS; 2021-07-09)
PROC: 30233N1 Transfusion of Nonautologous Red Blood Cells into Peripheral Vein, Percutaneous Approach (ICD-10-PCS; 2021-07-09)
DX: O24.425 Gestational diabetes mellitus in childbirth, controlled by oral hypoglycemic drugs (principal); O10.92 Unspecified pre-existing hypertension complicating childbirth; Z37.0 Single live birth; D62 Acute posthemorrhagic anemia; O69.81X0 Labor and delivery complicated by cord around neck, without compression, not applicable or unspecified; O70.1 Second degree perineal laceration during delivery; O71.82 Other specified trauma to perineum and vulva; Z3A.39 39 weeks gestation of pregnancy; O90.81 Anemia of the puerperium
CPT/HCPCS: 36415; 85014; 85018; 85025; 85610; 86850; 86900; 86901; 86920; A9270; J7120; P9016; P9017

== ENCOUNTER 2021-08-25 08:57 | Outpatient (CLI) | payer BC ==
[2021-08-25 09:36] LABS: HCT - HEMATOCRIT 36.2 % (37.0-47.0); HGB - HEMOGLOBIN 11.7 g/dL (12.0-16.0); MEAN CORPUSCULAR HEMOGLOBIN 28.4 pg (27.0-31.0); MEAN CORPUSCULAR HGB CONC 32.3 g/dL (32.0-36.0); MEAN CORPUSCULAR VOLUME 87.9 fL (81.0-99.0); MEAN PLATELET VOLUME 10.6 fL (7.9-10.8); RED BLOOD COUNT 4.12 10^6/uL (4.20-5.40); RED CELL DISTRIBUTION WIDTH 12.7 % (12.0-15.0); WHITE BLOOD COUNT 5.3 x10^3/uL (4.8-10.8)
[2021-08-25 09:47] LABS: GTT GLUCOSE,FASTING 93 mg/dL (70-100)
== END 2021-08-25 08:58 | disposition home or self-care (01) ==
LOC: LAB 08:57
PROVIDERS: ATTEND Obstetrics & Gynecology
DX: Z39.1 Encounter for care and examination of lactating mother (principal); E55.9 Vitamin D deficiency, unspecified; D62 Acute posthemorrhagic anemia; O24.439 Gestational diabetes mellitus in the puerperium, unspecified control
CPT/HCPCS: 36415; 82306; 82951; 85027

== ENCOUNTER 2022-08-26 08:00 | Outpatient (CLI) | payer BC | END 2022-08-26 23:59 | disposition home or self-care (01) | LOC: LAB.S 08:00 | PROVIDERS: ATTEND Physician Assistant Medical | DX: J02.9 Acute pharyngitis, unspecified (principal) | CPT/HCPCS: 87070 ==

== ENCOUNTER 2023-04-08 08:00 | Outpatient (CLI) | payer BC ==
[2023-04-08 15:52] LABS: BILIRUBIN,URINE NEGATIVE (NEGATIVE); GLUCOSE, URINE (UA) NEGATIVE (NEGATIVE); KETONES,URINE (UA) NEGATIVE (NEGATIVE); LEUKOCYTE ESTERASE, URINE SMALL (NEGATIVE); NITRITE,URINE NEGATIVE (NEGATIVE); OCCULT BLOOD,URINE NEGATIVE (NEGATIVE); PROTEIN,URINE NEGATIVE (NEGATIVE); UROBILINOGEN,URINE 0.2 (NORMAL) E.U./dL (NORMAL)
[2023-04-08 15:53] LABS: CLARITY,URINE CLEAR (CLEAR)
[2023-04-08 16:04] LABS: BACTERIA,URINE Rare /HPF (None Seen); RBC,URINE 0-5 /HPF (0-5); SQUAMOUS EPITHELIAL CELL,UR FEW Squamous (<= Few)
== END 2023-04-08 23:59 | disposition home or self-care (01) ==
LOC: LAB.WC 08:00
PROVIDERS: ATTEND Obstetrics & Gynecology
DX: Z34.90 Encounter for supervision of normal pregnancy, unspecified, unspecified trimester (principal)
CPT/HCPCS: 81001; 87086

== ENCOUNTER 2023-04-19 11:11 | Emergency (ER) | payer BC ==
--- NOTE | 2023-04-19 11:48 | ED Physician Documentation ---
PD HPI BACK PAIN - Stated complaint Stated Complaint: LLB PX, - Chief complaint Chief Complaint: Back Pain - History obtained from History obtained from: Patient - Additional information Additional information: at 9 weeks gestation has had left low back pain. She was walking around a lot at [facility]. Since then it is intermittent but worse if she bends over or twists. She denies urinary complaints. No fluid loss or bleeding. No anterior pain. PD PAST MEDICAL HISTORY - Past Medical History Past Medical History: No - Past Surgical History Past Surgical History: Yes - Present Medications Home Medications: Ambulatory Orders Medication Instructions Recorded Confirmed Fluticasone [Flonase] 1 spray INH DAILY 05/18/17 05/18/17 Labetalol [Trandate] 100 mg PO BID 05/19/21 05/19/21 Pnv No.95/Ferrous Fum/Folic AC 1 each PO DAILY 05/19/21 05/19/21 [ Caplet] - Allergies Allergies/Adverse Reactions: Allergies Allergy/AdvReac Type Severity Reaction Status Date / Time No Known Drug Allergies Allergy Verified 04/19/23 11:21 - Social History Does the pt smoke?: No Smoking Status: Never smoker Does the pt drink ETOH?: No Does the pt have substance abuse?: No - Immunizations Immunizations are current?: Yes PD ED PE NORMAL - Vitals Vital signs reviewed: Yes - General General: Alert and oriented X 3, No acute distress - Abdomen Abdomen: Normal bowel sounds, Soft, Non tender - Female Female : Other (Bedside ultrasound demonstrates single live intrauterine with positive heart tones) - Back Back: No spinal TTP - Extremities Extremities: No edema, No calf tenderness / cord - Neuro Neuro: Alert and oriented X 3, Normal speech Results - Vitals Vitals: Vital Signs - 24 hr 04/19/23 11:17 Temperature 36.6 C Heart Rate 92 Respiratory 16 Rate Blood Pressure 134/75 H O2 Saturation 100 Oxygen O2 Source Room air PD Medical Decision Making - ED course ED course: 37-year-old woman with muscular low back pain. She was concerned about an ectopic but she has an IUP on ultrasound today. Departure - Departure Disposition: 01 Home, Self Care Clinical Impression: Low back pain Qualifiers: Chronicity: acute Back pain laterality: left Sciatica presence: without sciatica Qualified Code(s): M54.50 - Low back pain, unspecified Condition: Good Record reviewed to determine appropriate education?: Yes Instructions: ED Spasm Back No Trauma Comments: Ultrasound is reassuring with normal-appearing intrauterine . Follow- up with your OB as scheduled. Return for new or worsening symptoms. Tylenol, heat and gentle stretching for pain.
--- OUTSIDE RECORDS SUMMARY | 2023-04-19 11:52 | EXTERNAL MEDICAL SUMMARY RPT | Continuity of Care Document ---
Author Name Unknown Address [address] [place] [address] Phone Organization [facility] Address [address] [place] [address] Phone Care Team Providers Care Blue Leather Sorter Name Role Phone Unavailable Unavailable Unavailable Robin Green Golf InstructorOlamide Unavail able Unavailable Robin Green Golf InstructorOlamide Unavail able Unavailable Mary Estevez Rn Unavailable Unavailable Medications date description facility 2023-04-08 00:00 [facility]one [facility] 2023-04-10 00:00 [facility]one [facility] 2023-04-10 00:00 [facility]one [facility] 2023-04-08 00:00 escitalopram oxalate [facility] [place] 2023-04-10 00:00 escitalopram oxalate [facility] [place] 2023-04-10 00:00 escitalopram oxalate [facility] [place] 2023-04-08 00:00 escitalopram oxalate [facility] [place] 2023-04-10 00:00 escitalopram oxalate [facility] [place] 2023-04-10 00:00 escitalopram oxalate [facility] [place] 2023-04-08 00:00 [facility]one [facility] 2023-04-10 00:00 [facility]pirone [facility] 2023-04-10 00:00 [facility]one [facility] 2023-04-08 00:00 [facility]one [facility] [place] 2023-04-10 00:00 [facility]one [facility] [place] 2023-04-10 00:00 [facility]pirone [facility] [place] 2023-04-08 00:00 escitalopram oxalate [facility] [place] 2023-04-10 00:00 escitalopram oxalate [facility] [place] 2023-04-10 00:00 escitalopram oxalate [facility] [place] 2023-04-08 00:00 escitalopram oxalate [facility] [place] 2023-04-10 00:00 escitalopram oxalate [facility] [place] 2023-04-10 00:00 escitalopram oxalate [facility] [place] 2023-04-08 00:00 buspirone [facility] [place] 2023-04-10 00:00 [facility]pirone [facility] [place] 2023-04-10 00:00 buspirone [facility] [place] Problems date description facility 2023-04-08 00:00 test positive [facility] [place] 2023-04-08 00:00 test positive [facility] [place] 2023-04-08 00:00 test positive [facility] [place] 2023-04-08 00:00 examinatio n or test, positive result [facility] [place] 2023-04-08 00:00 examinatio n or test, positive result [facility] [place] 2023-04-08 00:00 examinatio n or test, positive result [facility] [place] 2023-04-08 00:00 Encounter for pregna ncy test, result positive [facility] [place] 2023-04-08 00:00 Encounter for pregna ncy test, result positive [facility] [place] 2023-04-08 00:00 Encounter for pregna ncy test, result positive [facility] Results/Labs test date author facility value unit interpretation Result panel 1 (unknown) (no date) (unknown) [facility] (no value) (units unknown) (unknown) Result panel 2 (unknown) (no date) (unknown) [facility] (no value) (units unknown) (unknown) Result panel 3 (unknown) (no date) (unknown) [facility] (no value) (units unknown) (unknown) Result panel 4 (unknown) (no date) (unknown) [facility] (no value) (units unknown) (unknown) Result panel 5 (unknown) (no date) (unknown) [facility] (no value) (units unknown) (unknown) Result panel 6 (unknown) (no date) (unknown) [facility] (no value) (units unknown) (unknown) Result panel 7 (unknown) (no date) (unknown) [facility] (no value) (units unknown) (unknown) Result panel 8 (unknown) (no date) (unknown) [facility] (no value) (units unknown) (unknown) Result panel 9 (unknown) (no date) (unknown) [facility] (no value) (units unknown) (unknown) Result panel 10 (unknown) (no date) (unknown) [facility] (no value) (units unknown) (unknown) Result panel 11 (unknown) (no date) (unknown) [facility] (no value) (units unknown) (unknown) Result panel 12 (unknown) (no date) (unknown) [facility] (no value) (units unknown) (unknown) Result panel 13 (unknown) (no date) (unknown) [facility] (no value) (units unknown) (unknown) Result panel 14 (unknown) (no date) (unknown) [facility] (no value) (units unknown) (unknown) Result panel 15 (unknown) (no date) (unknown) [facility] (no value) (units unknown) (unknown) Result panel 16 (unknown) (no date) (unknown) [facility] (no value) (units unknown) (unknown) Result panel 17 (unknown) (no date) (unknown) [facility] (no value) (units unknown) (unknown) Result panel 18 (unknown) (no date) (unknown) [facility] (no value) (units unknown) (unknown) Result panel 19 (unknown) (no date) (unknown) [facility] (no value) (units unknown) (unknown) Social History date description facility 2023-04-08 00:00 Never smoker [facility] [place] 2023-04-08 00:00 Never smoker [facility] [place] 2023-04-08 00:00 Never smoker [facility] [place] Vital Signs date measurement value units 2023-04-08 00:00 BMI 30.26 kg/m2 2023-04-08 00:00 height_metric 152.4 cm 2023-04-08 00:00 height_standard 60 in 2023-04-08 00:00 weight_metric 70.03 kg 2023-04-08 00:00 weight_standard 154.4 lb
[2023-04-19 12:04] VITALS: BP 133/69
== END 2023-04-19 11:59 | disposition home or self-care (01) ==
LOC: ED 11:11
DX: O99.891 Other specified diseases and conditions complicating pregnancy (principal); M54.50 Low back pain, unspecified; Z3A.00 Weeks of gestation of pregnancy not specified
CPT/HCPCS: 36415; 85025; 86592; 86762; 86787; 86803; 86850; 86900; 86901; 87340; 87389; 99281; 99283

== ENCOUNTER 2023-04-19 12:02 | Outpatient (CLI) | payer BC ==
[2023-04-19 12:22] LABS: BASOPHILS % (AUTO) 0.2 %; EOSINOPHILS # (AUTO) 0.2 10^3/uL (0.0-0.7); EOSINOPHILS % (AUTO) 1.5 %; HCT - HEMATOCRIT 34.7 % (37.0-47.0); LYMPHOCYTES # (AUTO) 2.7 10^3/uL (1.5-3.5); LYMPHOCYTES % (AUTO) 26.4 %; MEAN CORPUSCULAR HEMOGLOBIN 29.9 pg (27.0-31.0); MEAN CORPUSCULAR HGB CONC 34.6 g/dL (32.0-36.0); MEAN CORPUSCULAR VOLUME 86.3 fL (81.0-99.0); MEAN PLATELET VOLUME 11.4 fL (7.9-10.8); MONOCYTES # (AUTO) 0.9 10^3/uL (0.0-1.0); MONOCYTES % (AUTO) 8.7 %; NEUTROPHILS # (AUTO) 6.3 10^3/uL (1.5-6.6); NEUTROPHILS % (AUTO) 62.8 %; PLT - PLATELET COUNT 257 10^3/uL (130-450); RED BLOOD COUNT 4.02 10^6/uL (4.20-5.40); RED CELL DISTRIBUTION WIDTH 12.8 % (12.0-15.0); WHITE BLOOD COUNT 10.1 x10^3/uL (4.8-10.8)
[2023-04-20 03:09] LABS: HBsAG SCREEN Negative (Negative); HCV AB Non Reactive (Non Reactive); HIV SCREEN 4TH GENERATION Non Reactive (Non Reactive); RPR Non Reactive (Non Reactive)
[2023-04-20 12:09] LABS: VARICELLA-ZOSTER AB IGG 1263 index (Immune >165)
== END 2023-04-19 12:03 | disposition home or self-care (01) ==
LOC: LAB 12:02
PROVIDERS: ATTEND Obstetrics & Gynecology
DX: Z34.90 Encounter for supervision of normal pregnancy, unspecified, unspecified trimester (principal)
CPT/HCPCS: 36415; 85025; 86592; 86762; 86787; 86803; 86850; 86900; 86901; 87340; 87389

== ENCOUNTER 2023-04-22 18:34 | Outpatient (CLI) | payer BC ==
--- NOTE | 2023-04-23 11:17 | Ultrasound Report ---
PROCEDURE: OB First Trimester INDICATIONS: POSITIVE TEST OUTSIDE/PRIOR DATING DATA: Last menstrual period (LMP): 02/13/2023. LMP-based estimated date of delivery (PATRICE): 11/20/2023. First dating scan (date and location): 04/22/2023. Estimated date of delivery (PATRICE) from first dating scan: 11/23/2023. The below data below was generated using the working PATRICE of 11/23/2023 TECHNIQUE: Real-time scanning was performed of the fetus and maternal pelvic organs, with image documentation. COMPARISON: None FINDINGS: Embryo: [place]-rump length is 2.5 cm corresponds to a 9 week 2 day gestation. Perigestational bleed measures 2.6 x 1.5 x 2.4 cm Heart rate: 169 bpm Measurement variability in dating: +/- 4 weeks by LMP, +/- 7 days by mean sac diameter (use before 6 weeks gestation if crown-rump length not able to be measured), +/- 5 days by crown-rump length (6-12 weeks gestation). Maternal organs: Ovaries 1.4 cm right corpus luteum cyst. Normal ovarian vascularity.. IMPRESSION: Single live intrauterine corresponds with a 9 week 2 day gestation. Perigestational bleed, 2.6 x 1.5 cm Reviewed by: Ralph Wylie MD on 04/23/2023 10:16 AM CH[facility] Approved by: Ralph Wylie MD on 04/23/2023 10:16 AM CHERYLE Station ID: [id number]
== END 2023-04-22 18:35 | disposition home or self-care (01) ==
LOC: DI 18:34
PROVIDERS: ATTEND Obstetrics & Gynecology
DX: O20.8 Other hemorrhage in early pregnancy (principal); Z3A.09 9 weeks gestation of pregnancy

== ENCOUNTER 2023-05-12 08:00 | Outpatient (CLI) | payer BC ==
[2023-05-12 20:58] LABS: CHLAMYDIA TRACHOMATIS DNA NEGATIVE (NEGATIVE); NEISSERIA GONORRHOEAE DNA NEGATIVE (NEGATIVE); TRICHOMONAS VAGINALIS DNA NEGATIVE (NEGATIVE)
== END 2023-05-12 23:59 | disposition home or self-care (01) ==
LOC: LAB.WC 08:00
PROVIDERS: ATTEND Obstetrics & Gynecology
DX: Z11.3 Encounter for screening for infections with a predominantly sexual mode of transmission (principal)
CPT/HCPCS: 87491; 87591; 87661

== ENCOUNTER 2023-06-07 14:48 | Outpatient (CLI) | payer BC | END 2023-06-07 14:49 | disposition home or self-care (01) | LOC: LAB 14:48 | PROVIDERS: ATTEND Obstetrics & Gynecology | DX: Z53.9 Procedure and treatment not carried out, unspecified reason (principal) ==

== ENCOUNTER 2023-07-01 15:17 | Outpatient (CLI) | payer BC ==
--- NOTE | 2023-07-02 13:28 | Ultrasound Report ---
PROCEDURE: OB Detailed Eval INDICATIONS: SUPERVISION OF OUTSIDE/PRIOR DATING DATA: Last menstrual period (LMP): 02/13/2023. LMP-based estimated date of delivery (PATRICE): 11/20/2023. First dating scan (date and location): 04/22/2023. Estimated date of delivery (PATRICE) from first dating scan: 11/23/2023. The below data below was generated using the ultrasound PATRICE of 11/23/2023 TECHNIQUE: Real-time scanning was performed of the fetus, with image documentation and biometric measurements. Endovaginal scanning: Not performed COMPARISON: Ultrasound 04/22/2023 FINDINGS: General: A single living intrauterine gestation is present. Presentation: Breech Placenta: Placental position is anterior, without previa. Amniotic fluid index: 14.7 cm, within normal limits for gestational age. heart rate: 141 beats per minute. Maternal cervical canal: 4.9 cm long; normal length is 2.5 cm or more. biometrics: Biparietal diameter: 4.2 cm, 18 weeks and 5 days Head circumference: 16.2 cm 19 weeks and 0 days Abdominal circumference: 13.8 cm , 19 weeks and 1 day Femur length: 2.9 cm, 19 weeks 0 days Estimated gestational age from initial scan: 19 weeks 2 days Composite gestational age from present scan: 19 weeks 0 days Estimated weight and percentile: 271 g, 32nd percentile Measurement variability in biometric dating: +/- 10 days from 12-20 weeks gestation, +/- 2 weeks from 20-30 weeks gestation, +/- 3 weeks at 30 weeks gestation or later. Anatomic survey: Neuro: Ventricles are normal at less than 10 mm. Cisterna magna is normal at 3-11 mm. Cerebellum i s normal in size and morphology. Nuchal skin fold: Normal at less than 6 mm between 14 and 20 weeks gestational age. Face: Nose and lips, facial profile are normal. Spine: No evidence for spina bifida. Heart: 4-chambered heart is present, with normal ventricular outflow tracts. Diaphragm: Diaphragm is intact. Stomach: Left-sided stomach is present. Kidneys: No hydronephrosis. Normal is less than 5 mm in 2nd trimester, less than 7 mm in 3rd trimester. Cord: 3 vessel cord has orthotopic insertion. Bladder: Normal in size. Extremities: All 4 extremities are visualized. IMPRESSION: 1.Single live intrauterine consistent with 19 weeks and 0 days. 2.Normal anatomic survey. Reviewed by: Ervin Pride MD on 07/02/2023 1:26 PM PDT Approved by: Ervin Pride MD on 07/02/2023 1:26 PM PDT Station ID: [id number]
== END 2023-07-01 15:18 | disposition home or self-care (01) ==
LOC: DI 15:17
PROVIDERS: ATTEND Nurse Practitioner
DX: O09.522 Supervision of elderly multigravida, second trimester (principal); O16.2 Unspecified maternal hypertension, second trimester; Z3A.19 19 weeks gestation of pregnancy

== ENCOUNTER 2023-08-29 09:12 | Outpatient (CLI) | payer BC ==
[2023-08-29 10:33] LABS: HCT - HEMATOCRIT 33.7 % (37.0-47.0); HGB - HEMOGLOBIN 11.4 g/dL (12.0-16.0); MEAN CORPUSCULAR HEMOGLOBIN 30.6 pg (27.0-31.0); MEAN CORPUSCULAR HGB CONC 33.8 g/dL (32.0-36.0); MEAN CORPUSCULAR VOLUME 90.6 fL (81.0-99.0); MEAN PLATELET VOLUME 11.8 fL (7.9-10.8); RED BLOOD COUNT 3.72 10^6/uL (4.20-5.40); RED CELL DISTRIBUTION WIDTH 13.1 % (12.0-15.0)
== END 2023-08-29 09:13 | disposition home or self-care (01) ==
LOC: LAB 09:12
PROVIDERS: ATTEND Obstetrics & Gynecology
DX: O09.522 Supervision of elderly multigravida, second trimester (principal)
CPT/HCPCS: 36415; 82950; 85027

== ENCOUNTER 2023-09-03 07:02 | Outpatient (CLI) | payer BC ==
[2023-09-03 07:38] LABS: GTT GLUCOSE,FASTING 88 mg/dL (74-109)
== END 2023-09-03 07:03 | disposition home or self-care (01) ==
LOC: LAB 07:02
PROVIDERS: ATTEND Nurse Practitioner
DX: O99.810 Abnormal glucose complicating pregnancy (principal)
CPT/HCPCS: 36415; 82951; 82952

== ENCOUNTER 2023-09-27 16:34 | Outpatient (CLI) | payer BC ==
--- NOTE | 2023-09-28 14:05 | Ultrasound Report ---
PROCEDURE: OB F/U or Repeat INDICATIONS: HYPERTENSION OUTSIDE/PRIOR DATING DATA: Last menstrual period (LMP): 02/13/2023. LMP-based estimated date of delivery (PATRICE): 11/20/2023. First dating scan (date and location): 04/22/2023. Estimated date of delivery (PATRICE) from first dating scan: 11/23/2023. The below data below was generated using the revised clinical PATRICE of 11/20/2023 TECHNIQUE: Real-time scanning was performed of the fetus, with image documentation and biometric measurements. Endovaginal scanning: Not performed. COMPARISON: OB ultrasound 07/01/2023 FINDINGS: General: A single living intrauterine gestation is present. Presentation: Vertex Placenta: Placental position is anterior, without previa. Amniotic fluid index: 18.5 cm, within normal limits for gestational age. Largest pocket 6.6 cm. heart rate: 141 beats per minute. Maternal cervical canal: 5 cm long; normal length is 2.5 cm or more. No funneling. biometrics: Biparietal diameter: 8.1 cm, 32 weeks 4 days Head circumference: 30.5 cm, 33 weeks 6 days Abdominal circumference: 28.2 cm, 32 weeks 3 days Femur length: 6.3 cm, 32 weeks 4 days Estimated gestational age from initial scan: 32 weeks 2 days Composite gestational age from present scan: 32 weeks 6 days Estimated weight and percentile: 2016 g, 51st percentile Measurement variability in biometric dating: +/- 10 days from 12-20 weeks gestation, +/- 2 weeks from 20-30 weeks gestation, +/- 3 weeks at 30 weeks gestation or more. Other: No gross abnormal. IMPRESSION: 1. C[place] living intrauterine at 32 weeks 6 days based on today's ultrasound. This is co ncordant with the prior dating. Fetus is in the 51st percentile for weight. 2. Normal placenta and amniotic fluid. Reviewed by: Daniel Gaspar MD on 09/28/2023 2:04 PM PST Approved by: Daniel Gaspar MD on 09/28/2023 2:04 PM PST Station ID: [id number]
== END 2023-09-27 16:35 | disposition home or self-care (01) ==
LOC: DI 16:34
PROVIDERS: ATTEND Obstetrics & Gynecology
DX: O09.523 Supervision of elderly multigravida, third trimester (principal); O16.3 Unspecified maternal hypertension, third trimester; Z3A.32 32 weeks gestation of pregnancy

== ENCOUNTER 2023-10-25 08:00 | Outpatient (CLI) | payer BC | END 2023-10-25 23:59 | disposition home or self-care (01) | LOC: LAB.WC 08:00 | PROVIDERS: ATTEND Obstetrics & Gynecology | DX: Z36.85 Encounter for antenatal screening for Streptococcus B (principal) | CPT/HCPCS: 87797 ==

== ENCOUNTER 2023-10-25 15:58 | Outpatient (CLI) | payer BC ==
--- NOTE | 2023-10-26 13:20 | Ultrasound Report ---
PROCEDURE: OB F/U or Repeat INDICATIONS: HYPERTENSION OUTSIDE/PRIOR DATING DATA: Last menstrual period (LMP): 02/13/2023. LMP-based estimated date of delivery (PATRICE): 11/20/2023. First dating scan (date and location): 04/22/2023. Estimated date of delivery (PATRICE) from first dating scan: 19 weeks 2 days. The below data below was generated using the LMP PATRICE of 11/20/2023 TECHNIQUE: Real-time scanning was performed of the fetus, with image documentation and biometric measurements. Endovaginal scanning: Not performed. COMPARISON: 09/27/2023 FINDINGS: General: A single living intrauterine gestation is present. Presentation: Vertex Placenta: Placental position is anterior, without previa. Amniotic fluid index: 18.3 cm, within normal limits for gestational age. heart rate: 150 beats per minute. Maternal cervical canal: 3.6 cm long; normal length is 2.5 cm or more. biometrics: Biparietal diameter: 8.8 cm. 35 weeks 5 days. 41.6 percentile Head circumference: 33.4 cm. 38 weeks 1 day. 65.8 percentile Abdominal circumference: 33.0 cm. 36 weeks 6 days. 77.5 percentile Femur length: 7.0 cm. 36 weeks 0 days. 39.8 percentile Estimated gestational age from LMP: 36 weeks 5 days Composite gestational age from present scan: 36 weeks 5 days Estimated weight and percentile: 3002 g. 63.5 percentile Measurement variability in biometric dating: +/- 10 days from 12-20 weeks gestation, +/- 2 weeks from 20-30 weeks gestation, +/- 3 weeks at 30 weeks gestation or more. anatomy: Chest/diaphragm, stomach/abdomen, left and right renal regions, and urinary bladder/pe lvis are normal. IMPRESSION: 1. Estimated weight 3002 g. 63.5 percentile. 2. JOANNE 18.3 cm. 3. Estimated gestational age by LMP 36 weeks 5 days. Reviewed by: Jose Guadalupe Edmonds MD on 10/26/2023 1:19 PM PST Approved by: Jose Guadalupe Edmonds MD on 10/26/2023 1:19 PM PST Station ID: [id number]
== END 2023-10-25 15:59 | disposition home or self-care (01) ==
LOC: DI 15:58
PROVIDERS: ATTEND Obstetrics & Gynecology
DX: O09.523 Supervision of elderly multigravida, third trimester (principal); O10.913 Unspecified pre-existing hypertension complicating pregnancy, third trimester; Z3A.36 36 weeks gestation of pregnancy; Z36.85 Encounter for antenatal screening for Streptococcus B
CPT/HCPCS: 87797

== ENCOUNTER 2023-11-14 22:24 | Inpatient (IN) | payer BC ==
[~2023-11-14 22:24] MED LIST: ACETAMINOPHEN 325 MG TABLET PO PRN; CARBOPROST TROMETHAMINE 250 MCG/ML AMP IM PRN; LABETALOL 20 MG/4 ML SYRINGE IVP PRN; METHYLERGONOVINE 0.2 MG/ML VIAL IM PRN; NIFEdipine 10 MG CAPSULE PO PRN; ONDANSETRON 4 MG/2 ML VIAL IVP PRN; OXYTOCIN 10 UNIT/ML VIAL IM PRN; OXYTOCIN/SODIUM CHLORIDE 500 ML IV PRN; SODIUM CHLORIDE FLUSH 0.9% 10 ML SYRINGE IVP PRN; TRANEXAMIC ACID IN NACL 1,000 MG/100 ML BAG IV PRN; fentaNYL 100 MCG/2 ML VIAL IVP PRN; hydrALAZINE INJ 20 MG/ML VIAL IVP PRN; lidocaine 1% 20 ML MDV ID PRN; miSOPROStoL 200 MCG TABLET BC PRN; miSOPROStoL 200 MCG TABLET PR ONE
--- NOTE | 2023-11-14 23:03 | HISTORY & PHYSICAL EXAMINATION ---
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 PGYN: has h/o abnormal pap, s/p colpo, no procedures indicated or done. no h/o STDs other than HPV no h/o problems with ovaries or uterus pt with regular monthly periods, when not Meds: PNV, Fe, ASA, vit D All: NKDA Soc: neg x3, rare soda, lives with Ralph FOB / and 2yo son. her MIL is here to watch their son, and will stay for about a month. 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 She feels well supported throughout this LMP: 02/13/2023 PATRICE by LMP: 11/20/2023 US Date 04/22/2023, US Age 9 weeks 2 days gestation, PATRICE by ultrasound: 11/23/2023 Final PATRICE: 11/20/2023 by LMP consistent with 9- week ultrasound Subchorionic hemorrhage Chronic hypertension: Currently controlled with diet and exercise. Taking 81 mg aspirin. Baseline labs normal. 24-hour urine 138 mg protein. EFW 32 and 36 weeks (ordered 29/04/23). 09/27 51st%ile 2016g History of gestational diabetes: Normal this History of hemorrhge: Likely from extensive vaginal tearing. Uterine atony not noted, but almost 3 L blood loss. Received tranexamic acid, 2 units of PRBC, 1 FFP. Pre- Weight:154.4 BMI: 30.26 Blood type: O+ Antibody: negative CBC: PLT 257 HCT 35.7 HGB 12.0 RUB: immune VZV: immune HBsAg: negatve HepC: N-R RPR/AB-EIA: N-R HIV: N-R PAP: 12/02/20 normal HPV + 16/18- GC/CT:Collected 05/12/2023 HSV: denies self/partner Genetic testing: NIPT- Negative AFP- ordered 06/30-ordered 08/05, unable to result, too late Covid: 1st set, 1 booster Pfizer Flu: : declines FAS: WNL Placenta:Anterior Cord:3VC EFW:32nd%ile 50gm OGCT:Early 05/24- 119/ Order again at 25weeks 174 3HR GTT:88 168, 137, 108 WNL TDAP: given 08/30 Breast Pump: given 08/30 3rd trimester H/H PLT 11.4/33.7 201 GBS:collected at 36.2 on 10/25 NKDA- Negative RSV vaccine: Given 10/12/2023 Delivery plan: LIkely 39-week induction (38-39+6) Contraception: Vasectomy vs Tubal ligation. BTL consents signed 09/27 - HPI Vital Signs Temperature 98.1 F 11/14/23 20:07 Heart Rate 83 11/14/23 20:07 Respiratory Rate 16 11/14/23 20:07 Blood Pressure 132/84 H 11/14/23 20:07 O2 Saturation 99 11/14/23 20:07 Temperature 98.1 F 11/14/23 20:27 Heart Rate 83 11/14/23 20:07 Respiratory Rate 16 11/14/23 20:07 Blood Pressure 132/84 H 11/14/23 20:07 O2 Saturation 99 11/14/23 20:07 If not protocol: Oxygen Flow, liters/minute - NST Procedure NST Procedure Start Time 17:05 Stop Time 17:49 Meds/Allgy - Home Medications Home Medications: Ambulatory Orders Medication Instructions Recorded Confirmed Fluticasone [Flonase] 1 spray INH DAILY 05/18/17 05/18/17 Labetalol [Trandate] 100 mg PO BID 05/19/21 05/19/21 Pnv No.95/Ferrous Fum/Folic AC 1 each PO DAILY 05/19/21 05/19/21 [ Caplet] - Allergies Allergies/Adverse Reactions: Allergies Allergy/AdvReac Type Severity Reaction Status Date / Time No Known Drug Allergies Allergy Verified 04/19/23 11:21 Review of Systems - Other Findings Other Findings: Denies: F/C/N/V/CP/SOB Denies: dizziness, weakness, lightheadedness, difficulty with ambulation, palpitations Denies: LAND / visual changes Physical - Abdominal Exam Vital Signs: Temp Pulse Resp BP Pulse Ox O2 Flow Rate 98.1 F 83 16 132/84 H 99 11/14/23 20:27 11/14/23 20:07 11/14/23 20:07 11/14/23 20:07 11/14/23 20:07 Contraction Frequency (min/apart): absent Contraction Intensity: positive: Mild Uterine Resting Tone: positive: Soft - Monitoring Heart Rate Baseline: 135 Strip Review: positive: Category I - Presentation Presentation: positive: Vertex - Vaginal Exam Membranes: positive: Membranes intact Dilation (in cm): 2 Effacement (%): 0 Station: positive: -3 Cervical Position: positive: Midposition - Speculum Exam Speculum Exam Performed: positive: No Plan for Labor - Plan For Labor I expect patient to be DC'd or transferred within 96 hours.: Yes Plan for Labor: 37yo @ 39w for IOL 2'2 cHTN -- doing well admit to L&D -- routine admission labs -- ADD HOLD 2U PRBC 2'2 PPH of 3L 2'2 LACERATIONS LAST TIME IOL -- start with miso -- h/o successful labor on miso with first IOL FWB cat 1 -- cEFM HISTORY OF PPH. TEAM AWARE. h/o cHTN -- add CMP to admit labs.
[2023-11-14] MEDS: miSOPROStoL 100 MCG TABLET VG SCH (23:19)
[2023-11-14 23:24] LABS: BASOPHILS % (AUTO) 0.3 %; EOSINOPHILS # (AUTO) 0.2 10^3/uL (0.0-0.7); EOSINOPHILS % (AUTO) 1.8 %; HCT - HEMATOCRIT 35.7 % (37.0-47.0); LYMPHOCYTES # (AUTO) 2.7 10^3/uL (1.5-3.5); LYMPHOCYTES % (AUTO) 23.7 %; MEAN CORPUSCULAR HEMOGLOBIN 30.4 pg (27.0-31.0); MEAN CORPUSCULAR HGB CONC 33.6 g/dL (32.0-36.0); MEAN CORPUSCULAR VOLUME 90.4 fL (81.0-99.0); MEAN PLATELET VOLUME 12.4 fL (7.9-10.8); MONOCYTES # (AUTO) 1.1 10^3/uL (0.0-1.0); MONOCYTES % (AUTO) 9.5 %; NEUTROPHILS # (AUTO) 7.4 10^3/uL (1.5-6.6); PLT - PLATELET COUNT 190 10^3/uL (130-450); RED BLOOD COUNT 3.95 10^6/uL (4.20-5.40); RED CELL DISTRIBUTION WIDTH 13.1 % (12.0-15.0); WHITE BLOOD COUNT 11.5 x10^3/uL (4.8-10.8)
[2023-11-14 23:34] LABS: ALBUMIN 3.7 g/dL (3.2-5.5); ALBUMIN/GLOBULIN RATIO 1.3 (1.0-2.2); BILIRUBIN,TOTAL 0.3 mg/dL (0.2-1.0); CALCIUM 9.2 mg/dL (8.5-10.3); CREATININE 0.5 mg/dL (0.6-1.3); POTASSIUM 3.8 mmol/L (3.5-4.5); TOTAL PROTEIN 6.5 g/dL (6.4-8.9)
[2023-11-15] MEDS ORDERED: SODIUM CHLORIDE FLUSH 0.9% 10 ML SYRINGE IVP SCH (01:00)
[2023-11-15] MEDS: miSOPROStoL 100 MCG TABLET VG SCH (03:23)
[2023-11-15] MEDS ORDERED: OXYTOCIN/SODIUM CHLORIDE 500 ML IV SCH (09:00)
--- NOTE | 2023-11-15 09:15 | PROVIDER PROGRESS NOTE ---
Labor Progress Note - Uterine Monitoring Uterine Monitoring Mode: positive: External toco Contraction Frequency (min/apart): 3-6 Contraction Intensity: positive: Mild to moderate - Monitoring Monitor Mode: positive: External ultrasound Heart Rate Baseline: 135 Heart Rate Variability: positive: Moderate (6-25 bmp) Accelerations: positive: Present, 15x15 Decelerations: positive: None Strip Review: positive: Category I - Vaginal Exam Dilation (in cm): 3 Effacement (%): 60 Station: -2 - Labor Progress Note Labor Progress Note/Additional Text: Patient has received 2 doses of misoprostol. Sonia every 3-6 minutes some palpable. Patient comfortable at this time. Will start oxytocin at this time. Anticipate AROM.
[2023-11-15] MEDS: LACTATED RINGERS 1,000 ML IV SCH ×2 (09:25→18:41)
--- NOTE | 2023-11-15 17:01 | PROVIDER PROGRESS NOTE ---
Labor Progress Note - Uterine Monitoring Uterine Monitoring Mode: positive: External toco Contraction Frequency (min/apart): 2-3 Contraction Intensity: positive: Moderate Uterine Resting Tone: positive: Soft - Monitoring Monitor Mode: positive: External ultrasound Heart Rate Baseline: 140 Heart Rate Variability: positive: Moderate (6-25 bmp) Accelerations: positive: Present, 15x15 Decelerations: positive: None Strip Review: positive: Category I - Vaginal Exam Dilation (in cm): 4 Effacement (%): 50 Station: -2 - Labor Progress Note Labor Progress Note/Additional Text: head was well engaged. Discussed amniotomy and patient and she agreed. Amniotomy was performed with a large amount of clear fluid. Patient tolerated procedure well. Continue oxytocin at this time. Anticipate .
[2023-11-15] MEDS ORDERED: CALCIUM CARBONATE CHEW 500 MG TABLET PO PRN (19:59)
[2023-11-15] MEDS ORDERED: SIMETHICONE CHEW 80 MG TABLET PO PRN (19:59)
[2023-11-15] MEDS ORDERED: ONDANSETRON 4 MG/2 ML VIAL IVP PRN (19:59)
[2023-11-15] MEDS ORDERED: LACTATED RINGERS 1,000 ML IV SCH (20:00)
--- NOTE | 2023-11-15 20:02 | DELIVERY NOTE ---
Delivery Note - Labor Labor: positive: Augmented by oxytocin - Delivery Method Delivery Method: positive: Spontaneous vaginal delivery - Cervical Ripening Method Cervical Ripening Method: positive: Misoprostil - Presentation Presentation: positive: Vertex - Nuchal Cord Nuchal Cord: positive: None - Anesthetic Anesthetic Type: Anesthetic: positive: Lidocaine - 1% plain Volume: positive: Other (10 ml) - Amniotic Fluid Description Amniotic Fluid Description: positive: Clear - Laceration Laceration: positive: 2nd degree, Labial, Vaginal - Suture Suture Type: positive: Vicryl (3-0), Chromic (3-0) - Delivery Outcome Delivery Outcome: positive: Livebirth - Gridley Gridley: positive: Placed in direct skin contact with mother sex: positive: Female - Cord Cord: positive: 3 vessels - Placenta Placenta: positive: Intact - Estimated Blood Loss Estimated Blood Loss (in cc): 1,000 - Post Delivery Events Post Delivery Events: positive: Hemorrhage - Delivery Comments (Free Text/Narrative) Delivery Comments (Free Text/Narrative): Preoperative Diagnoses 39 weeks gestation Chronic hypertension History of hemorrhage Postoperative Diagnoses Same Status post spontaneous vaginal delivery Delivery of live luna hemorrhage Delivery Summary: Patient was placed in the dorsal lithotomy position. Upon maternal pushing the head was delivered atraumatically followed by the anterior shoulder, posterior shoulder, then the remainder of the 's body. A female infant was delivered with APGARS of 8 at 1 minute and 9 at 5 minutes. The infant was placed on its mother's chest . After the cord finished pulsating, the umbilical cord was clamped times two and cut. The placenta delivered intact with three vessel cord. Placenta was not sent to pathology. Thirty units of Pitocin were added to the IV fluid and allowed to run freely. Uterine massage was performed until uterus was deemed firm. Upon inspection of the perineum, she had a second-degree midline laceration that was repaired with a running suture of 3-0 Vicryl. She also had a vaginal tear that was repaired with a [id number]-ii-[id number] stitch of 3-0 Vicryl. She also had a right labial upper tear that was repaired with a [id number]-hb-bigct stitch of 3-0 chromic. Upon re-inspection the patient was hemostatic. Uterus again massaged and found to be firm. Needle and sponge counts were correct. Patient was stable and allowed to recover in L&D room. Infant was stable and remained in room with mother. weight is pending at this time.
[2023-11-15] MEDS: ACETAMINOPHEN 500 MG TABLET PO SCH (20:09)
[2023-11-15] MEDS: IBUPROFEN 600 MG TABLET PO SCH (20:10)
[2023-11-16] MEDS: IBUPROFEN 600 MG TABLET PO SCH ×3 (02:18→20:27)
[2023-11-16] MEDS: ACETAMINOPHEN 500 MG TABLET PO SCH ×3 (04:14→20:27)
--- NOTE | 2023-11-16 09:53 | PROVIDER PROGRESS NOTE ---
Subjective - Subjective Subjective: Subjective Patient reports she is doing well. Lochia appropriate. Denies heavy bleeding. Ambulating. Pelvic and abdominal pain well-controlled. Tolerating oral intake. Diet: Regular. Voiding without difficulty. Passing flatus. Denies BM. Patient is bonding with baby in room Breast feeding going well. Denies feeling lightheaded, dizzy or excessively fatigued. Objective General: Alert, oriented, no apparent distress. Cardiovascular: Regular rate. Regular rhythm. Lungs: No increased work of breathing. Abdomen: Uterus firm. Below umbilicus. No guarding or rebound. Extremities: No pain on palpation. No cords palpated. Distal pulses intact. Assessment and Plan day 1. -Routine care -Anticipate discharge tomorrow hemorrhage -Vital signs normal. No signs or symptoms of hypovolemia. Will repeat CBC this evening if she is symptomatic. Objective - Vital Signs/Intake & Output Vital Signs: Vital Signs x48h Pulse Resp BP Pulse Ox 11/16/23 04:17 78 15 118/67 99 Intake & Output: Intake & Output 11/13/23 11/14/23 11/15/23 11/16/23 23:59 23:59 23:59 23:59 Intake Total 1426.667 Output Total 400 Balance 1026.667 - Lab Results Fish Bones: 11/14/23 22:37 11/14/23 22:37
[2023-11-16 19:33] LABS: BASOPHILS % (AUTO) 0.3 %; EOSINOPHILS # (AUTO) 0.2 10^3/uL (0.0-0.7); EOSINOPHILS % (AUTO) 1.5 %; HCT - HEMATOCRIT 28.2 % (37.0-47.0); HGB - HEMOGLOBIN 9.4 g/dL (12.0-16.0); LYMPHOCYTES # (AUTO) 2.8 10^3/uL (1.5-3.5); LYMPHOCYTES % (AUTO) 24.3 %; MEAN CORPUSCULAR HEMOGLOBIN 30.5 pg (27.0-31.0); MEAN CORPUSCULAR HGB CONC 33.3 g/dL (32.0-36.0); MEAN CORPUSCULAR VOLUME 91.6 fL (81.0-99.0); MEAN PLATELET VOLUME 11.9 fL (7.9-10.8); MONOCYTES # (AUTO) 0.8 10^3/uL (0.0-1.0); NEUTROPHILS # (AUTO) 7.7 10^3/uL (1.5-6.6); NEUTROPHILS % (AUTO) 66.2 %; PLT - PLATELET COUNT 170 10^3/uL (130-450); RED BLOOD COUNT 3.08 10^6/uL (4.20-5.40); RED CELL DISTRIBUTION WIDTH 13.3 % (12.0-15.0); WHITE BLOOD COUNT 11.6 x10^3/uL (4.8-10.8)
[2023-11-16] MEDS: DOCUSATE SODIUM 100 MG CAPSULE PO PRN (20:27)
[2023-11-17] MEDS: IBUPROFEN 600 MG TABLET PO SCH ×2 (02:25→08:06)
[2023-11-17] MEDS: ACETAMINOPHEN 500 MG TABLET PO SCH (04:35)
[2023-11-17] MEDS: DOCUSATE SODIUM 100 MG CAPSULE PO PRN (08:07)
[2023-11-17 08:36] VITALS: BP 134/72; O2SAT 99
[2023-11-17 10:42] LABS: PARTIAL THROMBOPLASTIN TIME 27.9 secs (24.9-33.3)
[2023-11-17 10:47] LABS: PT - PROTHROMBIN TIME 10.7 secs (9.9-12.6)
--- NOTE | 2023-11-17 11:33 | Labor Flowsheet ---
Labor Flowsheet Datetime Report Generated by CPN: 11/17/2023 11:32 Datetime: 11/17/2023 08:17 VITAL SIGNS NBP Sys/Ines/Mean (mmHg): 134 : 74 : 86 Pulse: 88 Datetime: 11/15/2023 23:04 SpO2 (%): 99 Datetime: 11/15/2023 19:23 Medication Comments: open pit Datetime: 11/15/2023 19:20 Stage of : Datetime: 11/15/2023 19:12 PATIENT CARE IV/Blood Work: IV Started Patient Care Comments: 2nd IV inserted, 20G Datetime: 11/15/2023 19:08 Communication Comments: Provider Sukhjinder at bedside Datetime: 11/15/2023 19:05 Exam by: SA Briggs Vaginal Exam Comments: Complete Datetime: 11/15/2023 19:00 UTERINE ACTIVITY Monitor Mode: External Frequency (min): 1-2 Quality: Strong Duration (sec): 50-60 Pattern: Normal: <= 5 Contractions in 10 Minutes ASSESSMENT A Monitor Mode: Telemetry FHR Baseline Rate : 145 Variability: Moderate 6-25 bpm Decelerations: Late Category: Category I Datetime: 11/15/2023 18:45 Resting Tone (Palpate): Relaxed Accelerations: None Datetime: 11/15/2023 18:30 Pitocin Checklist: At Least 1 Acceleration of 15 bpm x 15 Seconds in 30 Minutes or Adequate Variabi lity; No More than 1 Late Deceleration Occurred in Past 30 Minutes; No More than 2 Variable Decelerat ions > 60 Seconds in Duration and decreasing >60 bpm in 30 minutes; No More than 5 Uterine Contractio ns in 10 Minutes for any 20 Minute Interval; Uterus Palpates Soft between Contractions Datetime: 11/15/2023 17:21 Patient Position/Activity: High Fowlers Datetime: 11/15/2023 17:07 Temperature (C): 36.6 Datetime: 11/15/2023 16:52 VAGINAL EXAM Dilatation (cm): 4.0 Effacement (%): 70 Station: -2 Membrane Status: Ruptured Membranes Rupture Method: Artificial Amniotic Fluid Color: Clear Amniotic Fluid Amount: Large Amniotic Fluid Odor: Normal Datetime: 11/15/2023 16:07 Vaginal Bleeding: None Cervix, Position: Midposition Datetime: 11/15/2023 14:44 Contraction Comments: one possible variable Datetime: 11/15/2023 14:09 Respirations: 16 Datetime: 11/15/2023 13:37 I/O Interventions: Up to BR Datetime: 11/15/2023 13:34 Cervix, Consistency: Soft Datetime: 11/15/2023 13:24 MEDICATIONS Pitocin (milliunits): Increased to @ 14 Datetime: 11/15/2023 12:11 Comments: tracing mom's HR Datetime: 11/15/2023 07:07 COMMUNICATION Communication: RN Reviewed Strip Datetime: 11/15/2023 06:00 Monitor Interventions for UA: Qulin Adjusted Datetime: 11/15/2023 03:51 Monitor Interventions for FHR: Ultrasound Adjusted Datetime: 11/15/2023 03:25 PAIN Pain Scale: 3 Pain Presence: Intermittent Pain Type: Cramping Pain Location: Abdomen Pain Goal: 4 Pain Assessment Comments: Patient states pain is at an acceptable level at this time. Cervical Ripening Agents: Cytotec @
--- NOTE | 2023-11-17 19:25 | DISCHARGE SUMMARY ---
"Discharge Summary Admit Date: 11/15/23 Discharge Date: 11/17/23 Discharging Provider: janusz Primary Care Provider: viky Code Status: Attempt Resuscitation Condition at Discharge: Good Discharge Disposition: 01 Home, Self Care - DIAGNOSES Admission Diagnoses: IUP at term cHTN Discharge Diagnoses with Status of Each Condition: - stable, all milestones met TN - stable - HPI History of Present Illness: Pt well, lochia appropriate, maral PO, + void, + flat, + ambulation Feeding going well -- breast Pt reports ready to go home, has safe home to return to Reviewed: discharge instructions, post- instructions, follow up instructions, precautions, precautions regarding: feeding, depression, bleeding, and anticipated post- course All questions answered Pt verbalized understanding VSS NAD Conjunctiva pink, pale sclera +S1, S2 CTAB Breasts soft, not engorged, no nipple cracking Abd soft, NT, ND Fundus firm below umbilicus Perineum intact, bleeding appropriate Ext: neg CCE - CONSULTS | PROCEDURES Procedures: IOL post care - HOSPITAL COURSE Hospital Course: pt admitted for IOL IOL without incident as per delivery note of note -- she did lose 1L of blood with lacerations so we tested PT / PTT / INR -- all wnl. routine PP care support. D/C home PPD#2 - ALLERGIES Allergies/Adverse Reactions: Allergies Allergy/AdvReac Type Severity Reaction Status Date / Time No Known Drug Allergies Allergy Verified 04/19/23 11:21 - MEDICATIONS Home Medications: Ambulatory Orders Medication Instructions Recorded Confirmed Fluticasone [Flonase] 1 spray INH DAILY 05/18/17 05/18/17 Labetalol [Trandate] 100 mg PO BID 05/19/21 05/19/21 Pnv No.95/Ferrous Fum/Folic AC 1 each PO DAILY 05/19/21 05/19/21 [ Caplet] - LABS Result Diagrams: 11/16/23 19:27 11/14/23 22:37 - QUALITY (Female Hip Fx Only) Was patient sent home on osteoporosis medication?: No - FOLLOW UP Follow Up: dr salmon in 1 week - TIME SPENT Time Spent in Discharge (Minutes): 30"
--- NOTE | 2023-11-17 19:31 | Discharge Plan ---
Discharge Plan Problem Reviewed?: Yes Disposition: Home, Self Care Condition: Good Diet: Regular Activity Restrictions: No Restrictions Shower Restrictions: No Driving Restrictions: No Weight Bearing: Full Weight Instruction Topics: Vaginal After Health Concerns: routine post Plan of Treatment: routine post Assessment: all post milestones met OK to D/C home with baby, . No Smoking: If you smoke, Please STOP! Call for help. Follow-up with: Jovi Slaughter MD [Provider Admit Priv/Credential] -
== END 2023-11-17 11:00 | disposition home or self-care (01) | DRG 807 ==
LOC: FBP 22:24 → WFO 22:24 → FBP 22:25
PROVIDERS: ADMIT Obstetrics & Gynecology; ATTEND Obstetrics & Gynecology
PROC: 3E0DXGC Introduction of Other Therapeutic Substance into Mouth and Pharynx, External Approach (ICD-10-PCS; 2023-11-14)
PROC: 10907ZC Drainage of Amniotic Fluid, Therapeutic from Products of Conception, Via Natural or Artificial Opening (ICD-10-PCS; principal; 2023-11-15)
PROC: 10E0XZZ Delivery of Products of Conception, External Approach (ICD-10-PCS; 2023-11-15)
PROC: 0KQM0ZZ Repair Perineum Muscle, Open Approach (ICD-10-PCS; 2023-11-15)
PROC: 0UQG7ZZ Repair Vagina, Via Natural or Artificial Opening (ICD-10-PCS; 2023-11-15)
DX: O16.4 Unspecified maternal hypertension, complicating childbirth (principal); Z37.0 Single live birth; O70.1 Second degree perineal laceration during delivery; Z3A.39 39 weeks gestation of pregnancy; O72.1 Other immediate postpartum hemorrhage
CPT/HCPCS: 36415; 59025; 59409; 80053; 85025; 85610; 85730; 86850; 86900; 86901; 99215; A9270; J7120

== ENCOUNTER 2023-11-22 08:00 | Outpatient (CLI) | payer BC ==
[2023-11-22 17:19] LABS: CREATININE,URINE 80.4 mg/dL; PROTEIN/CREATININE RATIO,URINE 0.1 (<=0.2)
== END 2023-11-22 23:59 | disposition home or self-care (01) ==
LOC: LAB.WC 08:00
PROVIDERS: ATTEND Nurse Practitioner
DX: R03.0 Elevated blood-pressure reading, without diagnosis of hypertension (principal)
CPT/HCPCS: 82570; 84156

== ENCOUNTER 2023-11-22 16:11 | Outpatient (CLI) | payer BC ==
[2023-11-22 16:29] LABS: HCT - HEMATOCRIT 33.8 % (37.0-47.0); HGB - HEMOGLOBIN 11.2 g/dL (12.0-16.0); MEAN CORPUSCULAR HEMOGLOBIN 30.4 pg (27.0-31.0); MEAN CORPUSCULAR HGB CONC 33.1 g/dL (32.0-36.0); MEAN CORPUSCULAR VOLUME 91.8 fL (81.0-99.0); MEAN PLATELET VOLUME 10.6 fL (7.9-10.8); RED BLOOD COUNT 3.68 10^6/uL (4.20-5.40); RED CELL DISTRIBUTION WIDTH 12.6 % (12.0-15.0); WHITE BLOOD COUNT 10.2 x10^3/uL (4.8-10.8)
[2023-11-22 16:53] LABS: ALBUMIN/GLOBULIN RATIO 1.3 (1.0-2.2); BILIRUBIN,TOTAL 0.2 mg/dL (0.2-1.0); CALCIUM 10.3 mg/dL (8.5-10.3); CREATININE 0.6 mg/dL (0.6-1.3); URIC ACID 7.3 mg/dL (2.3-6.6)
== END 2023-11-22 16:12 | disposition home or self-care (01) ==
LOC: LAB 16:11
PROVIDERS: ATTEND Nurse Practitioner
DX: R03.0 Elevated blood-pressure reading, without diagnosis of hypertension (principal)
CPT/HCPCS: 36415; 80053; 82570; 84156; 84550; 85027

== ENCOUNTER 2023-12-27 12:15 | Outpatient (CLI) | payer BC ==
[2023-12-27 12:41] LABS: BASOPHILS % (AUTO) 0.4 %; EOSINOPHILS # (AUTO) 0.2 10^3/uL (0.0-0.7); EOSINOPHILS % (AUTO) 2.5 %; HCT - HEMATOCRIT 40.4 % (37.0-47.0); HGB - HEMOGLOBIN 13.3 g/dL (12.0-16.0); LYMPHOCYTES # (AUTO) 3.1 10^3/uL (1.5-3.5); MEAN CORPUSCULAR HEMOGLOBIN 28.9 pg (27.0-31.0); MEAN CORPUSCULAR HGB CONC 32.9 g/dL (32.0-36.0); MEAN CORPUSCULAR VOLUME 87.8 fL (81.0-99.0); MEAN PLATELET VOLUME 10.9 fL (7.9-10.8); MONOCYTES # (AUTO) 0.7 10^3/uL (0.0-1.0); MONOCYTES % (AUTO) 8.5 %; NEUTROPHILS % (AUTO) 49.6 %; PLT - PLATELET COUNT 380 10^3/uL (130-450); RED CELL DISTRIBUTION WIDTH 11.6 % (12.0-15.0)
== END 2023-12-27 12:16 | disposition home or self-care (01) ==
LOC: LAB 12:15
PROVIDERS: ATTEND Nurse Practitioner
DX: R58 Hemorrhage, not elsewhere classified (principal)
CPT/HCPCS: 36415; 81599; 85025; 85245